=== PATIENT | female | born 1960 | race Caucasian/White ===

== ENCOUNTER 2024-11-09 00:29 | Inpatient (IN) ==
--- NOTE | 2024-11-09 00:33 | Emergency Department Note ---
Impression & Plan Acute respiratory failure with hypoxia and hypercarbia, Closed right hip fracture, Acute hyponatremia ED Provider Note NAME: CATHY CRONIN AGE: 63 SEX: F : 1960 ARRIVES VIA: Ambulance INFORMANT: Patient, nursing/EMS ED PROVIDER(S): Sigifredo Sidhu MD CHIEF COMPLAINT: Fall, hip pain MEDICAL DECISION MAKING: Patient presents for the above. I was called to the room emergently as the patient had low oxygen saturations in the high 60s and declining to is much of 60%. Patient reportedly was as low as 45% prior to my arrival into the room. I did sternal rub the patient she responded quickly and was conversational and sats improved and her oxygen was down titrated. Patient's pupils were not pinpoint did not think that she required Narcan the patient does have a known history of smoking likely history of COPD and then in addition to administration of narcotics likely contributed to the symptoms. The patient does have a chronic history of smoking does have some wheezing throughout. Patient does have concern for right hip fracture. IV was established and blood work was obtained. Patient was significant erythema to the lower extremities likely secondary to chronic swelling. Patient was ordered Pro-Joseph blood work VBG steroids DuoNeb treatment chest x-ray right hip and pelvis x-ray. Patient denies any head strike or LOC. Patient's blood work showed a normal white count hemoglobin and platelet count. The patient's kidney function was unremarkable. VBG with hypercarbia at 73 with a VBG pH is 7.3 so the patient was placed on BiPAP. Patient with significant hyponatremia at 117. No priors for comparison. Urine and serum electrolytes osmolality ordered along with urine electrolytes. Patient's chest x-ray shows possible right upper lobe patchy opacity. Patient does have obvious hip fracture on the right hip. Patient was reassessed several times still conversational and easily arousable. Given the patient's difficulty with breathing as well as hypoxia try and avoid any narcotics. The patient did receive IV Tylenol. I did speak with Dr. Granger and the patient was admitted to the medicine service. I did message with the on-call orthopedist Dr. Stark to make him aware of the patient. Critical Care: I have personally spent 65 minutes of critical care time in direct management of this patient. This includes bedside care, interpretation of diagnostic studies, and testing, discussion with consultants, patient, and family members, and other require inpatient management activities. This 65 minutes is in excess of all separately billable procedures. Discussion w/ other healthcare providers: Dr. Granger inpatient medicine service Dr. Stark orthopedics Prior /Outside records reviewed: None Differential diagnosis: Fracture, sprain, strain, subluxation, dislocation, contusion, ligamentous injury, neurovascular, dehydration, electrolyte abnormality as well as other etiologies were considered. Pneumonia, pneumothorax Diagnostics, as interpreted by me: ECG: Normal sinus rhythm, rate of 89, normal intervals, normal axis T wave version inferiorly no obvious STEMI. Cardiac monitoring: An order was placed for continuous cardiac monitoring. The monitor shows a rate of 89 with sinus rhythm. Patient was placed on pulse oximetry Medical decision rules: None Imaging studies: I informally interpreted the patient's right hip x-ray shows hip fracture with formal report to follow. HPI: Patient presents due to concern for ground-level fall. The patient states that she was walking up a hill in order to burn trash when she fell onto her right hip. Patient reports that she does chronically take hydrocodone and is a smoker. EMS did give the patient fentanyl and route. Patient states that she did not hit her head no LOC. The patient states that she does take a baby aspirin but no other antiplatelets or blood thinners. Patient denies any head neck chest back or abdominal pain. Patient states that she is on fluid pills. Patient does report right hip pain and states that this was a ground-level fall onto concrete. Patient was unable to ambulate thereafter. Patient does endorse smoking history and has had slight productive cough. PAST MEDICAL HISTORY: See Below PAST SURGICAL HISTORY: See Below SOCIAL HISTORY: See Below HOME MEDICATIONS: See Below ALLERGIES: See Below VITALS: See Below PHYSICAL EXAMINATION: GENERAL: Moderately ill in appearance, cyanotic, nonrebreather in place. EYE EXAM: Normal conjunctiva. PERRL, no anisocoria and EOM's grossly intact w/o pain. OROPHARYNX: Moist mucus membranes, grossly normal dentition. NECK: Trachea midline, no stridor. Supple, no nuchal rigidity, no adenopathy, non-tender. No signs of meningismus. FROM of the neck with good chin to chest and neck extension. LUNGS: Wheezing throughout. Normal chest wall mechanics. HEART: NSR, no MRG. ABDOMEN: Abdomen soft, non-tender, no masses, no rebound or guarding. BACK: No CVA TTP. SKIN: No rashes and no bruising. UPPER EXTREMITIES: Upper extremities are grossly normal. LOWER EXTREMITIES: Right hip shortened when compared to left, decreased range of motion right leg secondary to pain compartments are soft but noted to be swollen bilaterally with associated 2+ pitting edema with erythema bilaterally. NEURO EXAM: Awake and alert, follows commands, no obvious facial asymmetry, normal speech, moves all 4 extremities. Past Med/Surg History Problem List (Updated 11/09/24 @ 05:28 by Sigifredo Sidhu MD) Acute hyponatremia (Acute) Acute respiratory failure with hypoxia and hypercarbia (Acute) Closed right hip fracture (Acute) Hyponatremia Social History Smoking Status: Current every day smoker Tobacco Type: Cigarettes Second Hand Exposure: No; Do You Dip or Chew Tobacco: No; Hx Alcohol Use: Yes Alcohol type: beer Hx Substance Use: No Preferred Language: [place] Communication Ability: Effective Vice Chair Required: No Beliefs That Will Affect Care: None Current Living Situation: Family Feels Safe at Home: Yes Assistive Devices: Glasses Allergies Allergies Allergy/AdvReac Type Severity Reaction Status Date / Time Penicillins Allergy Intermediate Rash Verified 11/09/24 01:59 Home Meds Home Medications Medication Instructions Recorded Confirmed albuterol sulfate 90 mcg/actuation 2 puff inhalation Q4H PRN Wheezing 11/09/24 11/09/24 aerosol inhaler aspirin 81 mg tablet,delayed 81 mg PO DAILY 11/09/24 11/09/24 release buspirone 10 mg tablet 10 mg PO BID 11/09/24 11/09/24 clindamycin HCl 300 mg capsule 300 mg PO Q6H 11/09/24 11/09/24 cyclobenzaprine 5 mg tablet 5 mg PO HS PRN MUSCLE SPASMS 11/09/24 11/09/24 furosemide 20 mg tablet 20 mg PO DAILY 11/09/24 11/09/24 hydrocodone 10 mg-acetaminophen 1 tab PO BID 11/09/24 11/09/24 325 mg tablet lisinopril 20 1 tab PO DAILY 11/09/24 11/09/24 mg-hydrochlorothiazide 12.5 mg tablet magnesium oxide 400 mg PO DAILY 11/09/24 11/09/24 metoprolol succinate 25 mg 25 mg PO HS 11/09/24 11/09/24 tablet,extended release 24 hr sulfamethoxazole 800 1 tab PO BID 11/09/24 11/09/24 mg-trimethoprim 160 mg tablet tiotropium bromide 1.25 2 inh inhalation DAILY 11/09/24 11/09/24 mcg/actuation mist for inhalation (Spiriva Respimat) venlafaxine 100 mg tablet 100 mg PO DAILY 11/09/24 11/09/24 Results & Data (ED) Vital Signs Vital Signs - 24 hr 11/09/24 00:43 11/09/24 00:43 11/09/24 01:57 Temperature 36.6 C Temperature Source Oral Pulse Rate 91 H 88 87 Respiratory Rate 18 17 Respiratory Effort / Characteristics Non-Labored Spontaneous Non-Labored Spontaneous Respiratory Depth Normal Normal Respiratory Pattern Regular Regular Blood Pressure 144/70 H Blood Pressure Mean 94 Blood Pressure Position Semi-fowlers Pulse Oximetry 95 98 Oxygen Delivery Method Nasal Cannula Oxygen Flow Rate 4 Fraction of Inspired Oxygen 28 Sepsis Recent Fever Within 48 Hours No Sepsis New/Unexplained Change in Mental Status No Sepsis Action Taken by Nursing No Action Required Home Medications Current Medication List: was personally reviewed by me Laboratory Data Attestation: I reviewed the patient's lab results. 11/09/24 03:49 11/09/24 03:49 Lab Results 11/09/24 Range/Units 00:54 WBC 8.34 (4.8-10.8) K/ul RBC 5.18 (4.20-5.40) M/uL Hgb 16.5 H (12.0-16.0) g/dl Hct 48.6 H (37.0-47.0) % MCV 93.8 (80.0-100.0) fL MCH 31.9 (25.0-34.0) pg MCHC 34.0 (32.0-36.0) g/dL RDW Std Deviation 65.8 H (36.4-46.3) fL RDW Coeff of Lisandra 19.4 H (11.5-14.5) % Plt Count 199 (130-400) K/uL MPV 8.7 L (9.4-12.4) fL Immature Gran % (Auto) 0.4 % Neut % (Auto) 85.6 % Lymph % (Auto) 8.6 % Sherman % (Auto) 4.8 % Eos % (Auto) 0.1 % Baso % (Auto) 0.5 % Neut # (Auto) 7.14 H (1.40-6.50) K/uL Lymph # (Auto) 0.72 L (1.20-3.40) K/uL Sherman # (Auto) 0.40 (0.11-0.59) K/uL Eos # (Auto) 0.01 (0.00-0.50) K/uL Baso # (Auto) 0.04 (0.00-0.20) K/uL Immature Gran # (Auto) 0.03 (0.01-0.20) K/uL PT 12.2 H (9.0-12.0) Seconds INR 1.1 (0.9-1.1) APTT 29 (21-31) Seconds PTT Ratio 1.1 VBG pH 7.30 L (7.36-7.41) VBG pCO2 73 H (38-50) mmHg VBG pO2 33 mmHg VBG HCO3 36 mmol/L VBG O2 Saturation < 60.0 % VBG Base Excess 6.8 mEq/L Sodium 117 L* (136-145) mmol/L Potassium 4.1 (3.5-5.1) mmol/L Chloride 77 L (98-107) mmol/L Carbon Dioxide 32 (21-32) mmol/L Anion Gap 8 (3-11) BUN 9 (6-23) mg/dl Creatinine 0.59 L (0.6-1.2) mg/dl Est Cr Clr Drug Dosing 89.2 ml/min eGFR 100.58 BUN/Creatinine Ratio 15.3 (10-20) Glucose 119 H (70-99(Fasting)) mg/dl Osmolality 264 L (280-300) mOsm/kg Calcium 8.9 (8.6-10.3) mg/dl Total Bilirubin 1.0 (0.2-1.0) mg/dl AST 37 (13-39) U/L ALT 28 (7-52) U/L Alkaline Phosphatase 133 H (34-104) U/L Total Protein 8.0 (6.0-8.3) gm/dl Albumin 3.7 (3.4-5.0) gm/dl Globulin 4.3 H (2.5-4.0) gm/dl Albumin/Globulin Ratio 0.9 (0.9-2) Procalcitonin < 0.02 (0-0.5) ng/ml Administered Medications Doxycycline Hyclate 100 mg/ (Dextrose) 100 mls @ 50 mls/hr IV Q12H VANDA Stop: 11/11/24 04:59 Last Admin: 11/09/24 04:28 Dose: 50 mls/hr Documented By: ShreeT Discontinued Medications Albuterol (Albut/Ipratrop 3mg/0.5mg Neb 3 Ml Vial) 3 ml NEB NOW STA; Protocol Stop: 11/09/24 00:44 Last Admin: 11/09/24 01:07 Dose: 3 ml Documented By: DARLENE Azithromycin (Azithromycin 250 Mg Tab) 500 mg PO NOW ONE Stop: 11/09/24 00:50 Last Admin: 11/09/24 01:05 Dose: 500 mg Documented By: DARLENE Acetaminophen (Ofirmev) 1,000 mg in 100 mls @ 400 mls/hr IV NOW STA Stop: 11/09/24 01:00 Last Infusion: 11/09/24 02:01 Dose: Infused Documented By: Admin: 11/09/24 01:13 Dose: 400 mls/hr Documented By: DARLENE Ceftriaxone Sodium (Rocephin) 2,000 mg in 50 mls @ 100 mls/hr IV NOW STA Stop: 11/09/24 01:18 Last Infusion: 11/09/24 05:15 Dose: Infused Documented By: Admin: 11/09/24 02:27 Dose: 100 mls/hr Documented By: DARLENE Methylprednisolone (Methylprednisolone 125 Mg/2 Ml Vial) 125 mg IV NOW STA Stop: 11/09/24 00:44 Last Admin: 11/09/24 01:09 Dose: 125 mg Documented By: DARLENE Naloxone HCl (Naloxone Hcl 0.4 Mg/1 Ml Vial/Carp) Confirm Administered Dose 0.8 mg .ROUTE .STK-MED ONE Stop: 11/09/24 00:35 Last Admin: 11/09/24 02:01 Dose: Not Given Documented By: DARLENE Imaging Data Radiologist's Impression: Hip/Pelvis X-Ray 11/09/24 00:43 EXAM: XR hip RT 2V w pelvis CLINICAL HISTORY: Fall, likely frx. TECHNIQUE: X-ray images of the right hip joints in AP and lateral projections with pelvis was obtained in anteroposterior (AP) projection. COMPARISON: No prior studies available for comparison. FINDINGS: Pelvic Bones: Pelvic bones, including the iliac wings, ischium, pubis, and sacrum, are normal and intact. No evidence of fractures, dislocations, or significant osseous lesions. Hip Joints: A mildly displaced subcapital fracture of the right femur is identified. The distal fractured fragment is mildly displaced upwards. Possible right hip joint effusion is also identified, with secondary displacement of the fat planes around the hip joint. The right hip joint space is reduced, which may be due to degenerative changes. No definite signs of acetabular fracture or dysplasia. The left hip joint is normal with preserved joint space. No evidence of hip dislocation, subluxation. No Left hip joint space narrowing or sclerosis noted. No signs of acetabular fracture or dysplasia. Radiographically acetabular surface appears intact. Bilateral subarticular geodes are identified. Femoral heads are centered within the acetabulum. No evidence of avascular necrosis or significant deformities. Radiographically, the sacroiliac joints appear normal and unremarkable. No evidence of sacroiliitis or significant degenerative changes. Symphysis Pubis: Symphysis pubis is normal and intact. No evidence of separation or widening. Soft Tissues: Visualized soft tissues, other than around the right hip joint, are normal and unremarkable. No soft tissue calcifications or masses. Additional Findings: Generalized decreased bone density is identified. Age-appropriate degenerative changes are identified bilaterally in the visualized bones. No other significant abnormalities were noted. IMPRESSION: 1. A mildly displaced subcapital fracture of the right femur is identified. The distal fractured fragment is mildly displaced upwards. 2. Possible right hip joint effusion is also identified, with secondary displacement of the fat planes around the hip joint. 3. The right hip joint space is reduced, which may be due to degenerative changes. 4. Further evaluation with a CT scan of the pelvis and hip joints is advised DISCLAIMER:A subtle bone abnormality or fracture may not be readily apparent on x-rays, thus clinical correlation and further imaging including follow up CT, MRI, or follow up x-rays are advised as needed. Electronically signed by Lambert Neely 11-09-2024 03:16 AM Chest X-Ray 11/09/24 01:25 EXAM: XR chest 1V portable CLINICAL HISTORY: Hypoxia. Fall. TECHNIQUE: X-ray image of the chest is obtained in AP projection. COMPARISON: No prior studies are available for comparison. FINDINGS: Pulmonary Parenchyma: Right upper lung lobe medial aspect, patchy opacity. Suspected left hilar faint opacity with air bronchogram. No evidence of pleural effusion or pleural thickening. Heart and Mediastinum: Curvilinear calcification of the aortic arch. Cardiomegaly. No hilar or mediastinal lymphadenopathy. Bony Thorax: Bony thorax appears intact without fractures or deformities. Soft Tissues: Soft tissues overlying the chest wall are unremarkable. IMPRESSION: 1. Right upper lung lobe medial aspect, patchy opacity. 2. Suspected left hilar faint opacity with air bronchogram. 3. Cardiomegaly. 4. Further CT chest advised to rule out pulmonary infection or interstitial lung disease, if clinically indicated. Electronically signed by Lambert Neely 11-09-2024 03:03 AM Discharge Plan Visit Data Chief Complaint: Fall Stated Complaint: FALL, R HIP PAIN ED Provider: Sigifredo Sidhu Discharge Problem: Acute respiratory failure with hypoxia and hypercarbia, Closed right hip fracture, Acute hyponatremia Patient Disposition: Admitted As Inpatient Condition: Fair Discharge Instructions Interventions: ED Discharge Assessment Last Done: 11/09/24 03:15 Discharge Problem: Closed right hip fracture Qualifiers: Encounter type: initial encounter Qualified Code(s): S72.001A - Fracture of unspecified part of neck of right femur, initial encounter for closed fracture
[2024-11-09] MEDS: AZITHROMYCIN 250 MG TAB PO ONE (01:05)
[2024-11-09] MEDS: ALBUT/IPRATROP 3MG/0.5MG NEB 3 ML VIAL NEB STA (01:07)
[2024-11-09 01:10] LABS: Base Excess VBG 6.8 mEq/L; HCO3 VBG 36 mmol/L; Oxygen Saturation VBG < 60.0 %; PCO2 VBG 73 mmHg (38-50); PO2 VBG 33 mmHg; pH VBG 7.30 (7.36-7.41)
[2024-11-09] MEDS: ACETAMINOPHEN 1,000 MG/100 ML VIAL IV STA (01:13)
[2024-11-09 01:14] LABS: Hematocrit (blood only) 48.6 % (37.0-47.0); Hemoglobin 16.5 g/dl (12.0-16.0); Immature Granulocytes # (auto) 0.03 K/uL (0.01-0.20); Immature Granulocytes % (auto) 0.4 %; Mean Corpuscular Hemoglobin 31.9 pg (25.0-34.0); Mean Corpuscular Volume 93.8 fL (80.0-100.0); Platelet Count 199 K/uL (130-400); RDW Standard Deviation 65.8 fL (36.4-46.3); Red Blood Count 5.18 M/uL (4.20-5.40); White Blood Count 8.34 K/ul (4.8-10.8)
[2024-11-09 01:34] LABS: Alanine Aminotransferase 28.0 U/L (7-52); Albumin Globulin Ratio 0.9 (0.9-2); Alkaline Phosphatase 133.0 U/L (34-104); Anion Gap 8.0 (3-11); Bilirubin,Total 1.0 mg/dl (0.2-1.0); Blood Urea Nitrogen 9.0 mg/dl (6-23); Calcium 8.9 mg/dl (8.6-10.3); Carbon Dioxide 32.0 mmol/L (21-32); Chloride 77.0 mmol/L (98-107); Creatinine Clr Calc Pharmacy 89.2 ml/min; Globulin 4.3 gm/dl (2.5-4.0); Glucose 119.0 mg/dl (70-99(Fasting)); Potassium 4.1 mmol/L (3.5-5.1); Sodium 117.0 mmol/L (136-145); Total Protein 8.0 gm/dl (6.0-8.3)
[2024-11-09 01:43] LABS: INR 1.1 (0.9-1.1); Partial Thromboplastin Time 29 Seconds (21-31); Prothrombin Time 12.2 Seconds (9.0-12.0)
[2024-11-09] MEDS: NALOXONE HCL 0.4 MG/1 ML VIAL/CARP ONE (02:01)
[2024-11-09] MEDS: cefTRIAXone SODIUM 2,000 MG/50 ML BAG IV STA (02:27)
--- NOTE | 2024-11-09 02:48 | History & Physical Report ---
Date of Service November 09, 2024 Assessment & Plan (1) Hyponatremia: (2) Closed right hip fracture: Plan This is a 63 year old female with a PMH of COPD, depression/anxiety - coming in with a ground level fall, acute R hip fracture, significant hyponatremia, acute hypoxemic respiratory failure, acute COPD exacerbation Severe Hyponatremia - on arrival here, sodium of 117 noted - patient's home medications include Lasix and HCTZ; will hold both of these - check urine sodium and urine osm - check sodium q4 and repeat stat - may benefit from nephrology input if remains low Acute Hypoxemic Respiratory Failure Respiratory Acidosis Acute COPD Exacerbation - patient had oxygen saturation in the 60's, ED physician gave Narcan - placed on bipap - VBG's done and shows CO2 retention and acidosis; no previous blood gasses to compare - duonebs PRN ordered - Rocephin + doxycycline ordered - IV Solu-medrol 125mg x1 given in the ED, will use 40mg q12 moving forward Fall Acute R Hip Fracture - Patient with a ground level fall; unsure if it was mechanical or not - coming in with significant R hip pain - imaging suggestive of fracture - ortho aware - patient became very hypoxemic and lethargic after opioid pain medication; was given Narcan - monitor and will need to carefully give opioids when she is more awake History of Present Illness Primary Care Provider: Brenda Neely PA-C Allergies Allergy/AdvReac Type Severity Reaction Status Date / Time Penicillins Allergy Intermediate Rash Verified 11/09/24 01:59 Home Medications Medication Instructions Recorded Confirmed Type albuterol sulfate 90 mcg/actuation 2 puff inhalation Q4H PRN Wheezing 11/09/24 11/09/24 History aerosol inhaler aspirin 81 mg tablet,delayed 81 mg PO DAILY 11/09/24 11/09/24 History release buspirone 10 mg tablet 10 mg PO BID 11/09/24 11/09/24 History clindamycin HCl 300 mg capsule 300 mg PO Q6H 11/09/24 11/09/24 History cyclobenzaprine 5 mg tablet 5 mg PO HS PRN MUSCLE SPASMS 11/09/24 11/09/24 H istory furosemide 20 mg tablet 20 mg PO DAILY 11/09/24 11/09/24 History hydrocodone 10 mg-acetaminophen 1 tab PO BID 11/09/24 11/09/24 History 325 mg tablet lisinopril 20 1 tab PO DAILY 11/09/24 11/09/24 History mg-hydrochlorothiazide 12.5 mg tablet magnesium oxide 400 mg PO DAILY 11/09/24 11/09/24 History metoprolol succinate 25 mg 25 mg PO HS 11/09/24 11/09/24 History tablet,extended release 24 hr sulfamethoxazole 800 1 tab PO BID 11/09/24 11/09/24 History mg-trimethoprim 160 mg tablet tiotropium bromide 1.25 2 inh inhalation DAILY 11/09/24 11/09/24 History mcg/actuation mist for inhalation (Spiriva Respimat) venlafaxine 100 mg tablet 100 mg PO DAILY 11/09/24 11/09/24 History Past Med/Surg History Problem List (Updated 11/09/24 @ 02:48 by Louisa Granger DO) Closed right hip fracture Hyponatremia Social History Smoking Status: Current every day smoker Tobacco Type: Cigarettes Preferred Language: Slovak Feels Safe at Home: Yes Results & Data Results & Data Vital Signs (Past 12 Hours) Vital Signs Temp Pulse Pulse Resp BP BP Pulse Ox 11/09/24 02:26 78 17 149/77 H 96 11/09/24 00:43 88 11/09/24 00:43 36.6 C 91 H 18 144/70 H 95 O2 Del Method O2 Flow Rate 11/09/24 02:26 BiPAP 11/09/24 00:43 11/09/24 00:43 Nasal Cannula 4 Code Status & VTE Plan VTE Prophylaxis Plan VTE Prophylaxis will be ordered: Yes PG Care Time/CCT Total # of Minutes Spent Total Time Spent with Patient: Total time spent is greater than 50% in coordination of care (as documented) at patient's floor/unit and/or counseling patient: Coding Level of Care Code 82422 INT INP/OBS CARE 3/75MIN Diagnoses Hyponatremia E87.1 Closed right hip fracture S72.001A
--- NOTE | 2024-11-09 03:03 | XRay Report ---
EXAM: XR chest 1V portable CLINICAL HISTORY: Hypoxia. Fall. TECHNIQUE: X-ray image of the chest is obtained in AP projection. COMPARISON: No prior studies are available for comparison. FINDINGS: Pulmonary Parenchyma: Right upper lung lobe medial aspect, patchy opacity. Suspected left hilar faint opacity with air bronchogram. No evidence of pleural effusion or pleural thickening. Heart and Mediastinum: Curvilinear calcification of the aortic arch. Cardiomegaly. No hilar or mediastinal lymphadenopathy. Bony Thorax: Bony thorax appears intact without fractures or deformities. Soft Tissues: Soft tissues overlying the chest wall are unremarkable. IMPRESSION: 1. Right upper lung lobe medial aspect, patchy opacity. 2. Suspected left hilar faint opacity with air bronchogram. 3. Cardiomegaly. 4. Further CT chest advised to rule out pulmonary infection or interstitial lung disease, if clinically indicated. Electronically signed by Lambert Neely 11-09-2024 03:03 AM
[2024-11-09 03:04] LABS: Appearance Urine Clear (Clear); Bacteria Urine Automated None Seen (None Seen); Cast Urine Automated 0-2 /lpf (0-2); Epithelial Cell Urine Auto 0-2 /hpf (0-2); Glucose Urine UA Negative (Negative); RBC Urine Automated 0-2 /hpf (0-2); WBC Urine Automated 0-5 /hpf (0-5)
[2024-11-09] MEDS ORDERED: ALBUTEROL HFA 8 GM INHALER INH PRN (03:12)
[2024-11-09] MEDS ORDERED: ONDANSETRON INJ 2 MG/ML 2 ML VIAL IV PRN (03:12)
[2024-11-09] MEDS ORDERED: ACETAMINOPHEN 325 MG TAB PO PRN (03:12)
--- NOTE | 2024-11-09 03:17 | XRay Report ---
EXAM: XR hip RT 2V w pelvis CLINICAL HISTORY: Fall, likely frx. TECHNIQUE: X-ray images of the right hip joints in AP and lateral projections with pelvis was obtained in anteroposterior (AP) projection. COMPARISON: No prior studies available for comparison. FINDINGS: Pelvic Bones: Pelvic bones, including the iliac wings, ischium, pubis, and sacrum, are normal and intact. No evidence of fractures, dislocations, or significant osseous lesions. Hip Joints: A mildly displaced subcapital fracture of the right femur is identified. The distal fractured fragment is mildly displaced upwards. Possible right hip joint effusion is also identified, with secondary displacement of the fat planes around the hip joint. The right hip joint space is reduced, which may be due to degenerative changes. No definite signs of acetabular fracture or dysplasia. The left hip joint is normal with preserved joint space. No evidence of hip dislocation, subluxation. No Left hip joint space narrowing or sclerosis noted. No signs of acetabular fracture or dysplasia. Radiographically acetabular surface appears intact. Bilateral subarticular geodes are identified. Femoral heads are centered within the acetabulum. No evidence of avascular necrosis or significant deformities. Radiographically, the sacroiliac joints appear normal and unremarkable. No evidence of sacroiliitis or significant degenerative changes. Symphysis Pubis: Symphysis pubis is normal and intact. No evidence of separation or widening. Soft Tissues: Visualized soft tissues, other than around the right hip joint, are normal and unremarkable. No soft tissue calcifications or masses. Additional Findings: Generalized decreased bone density is identified. Age-appropriate degenerative changes are identified bilaterally in the visualized bones. No other significant abnormalities were noted. IMPRESSION: 1. A mildly displaced subcapital fracture of the right femur is identified. The distal fractured fragment is mildly displaced upwards. 2. Possible right hip joint effusion is also identified, with secondary displacement of the fat planes around the hip joint. 3. The right hip joint space is reduced, which may be due to degenerative changes. 4. Further evaluation with a CT scan of the pelvis and hip joints is advised DISCLAIMER:A subtle bone abnormality or fracture may not be readily apparent on x-rays, thus clinical correlation and further imaging including follow up CT, MRI, or follow up x-rays are advised as needed. Electronically signed by Lambert Neely 11-09-2024 03:16 AM
[2024-11-09 04:08] LABS: Hematocrit (blood only) 47.5 % (37.0-47.0); Hemoglobin 15.5 g/dl (12.0-16.0); Mean Corpuscular Hemoglobin 31.0 pg (25.0-34.0); Mean Corpuscular Volume 95.0 fL (80.0-100.0); Platelet Count 184 K/uL (130-400); RDW Standard Deviation 66.3 fL (36.4-46.3); Red Blood Count 5.00 M/uL (4.20-5.40); White Blood Count 7.55 K/ul (4.8-10.8)
[2024-11-09] MEDS: DOXYCYCLINE HYCLATE 100 MG in DEXTROSE 5% MINI-B 100 ML IV SCH (04:28)
[2024-11-09 04:30] LABS: Anion Gap 6.0 (3-11); Blood Urea Nitrogen 8.0 mg/dl (6-23); Calcium 8.6 mg/dl (8.6-10.3); Carbon Dioxide 32.0 mmol/L (21-32); Chloride 78.0 mmol/L (98-107); Creatinine Clr Calc Pharmacy 109.6 ml/min; Glucose 117.0 mg/dl (70-99(Fasting)); Magnesium 1.5 mg/dl (1.7-2.4); Potassium 4.5 mmol/L (3.5-5.1); Sodium 116.0 mmol/L (136-145)
[2024-11-09 04:45] LABS: Anisocytosis Present; Immature Granulocytes # (auto) 0.04 K/uL (0.01-0.20); Immature Granulocytes % (auto) 0.5 %; Polychromasia 2+
[2024-11-09] MEDS: ALBUT/IPRATROP 3MG/0.5MG NEB 3 ML VIAL NEB PRN (07:09)
--- NOTE | 2024-11-09 07:28 | Electrocardiogram Report ---
Test Reason : Blood Pressure : */* mmHG Vent. Rate : 89 BPM Atrial Rate : 89 BPM P-R Int : 170 ms QRS Dur : 90 ms QT Int : 370 ms P-R-T Axes : -21 162 -13 degrees QTcB Int : 450 ms Normal sinus rhythm with a PAC Left posterior fascicular block T wave abnormality, consider inferior ischemia Abnormal ECG No previous ECGs available Confirmed by Jefferson Chaudhary ([id number]) on 11/09/2024 7:28:06 AM Referred By: REFERRED SELF Confirmed By: Jefferson Chaudhary
[2024-11-09 07:36] LABS: Anion Gap 8.0 (3-11); Blood Urea Nitrogen 8.0 mg/dl (6-23); Calcium 8.4 mg/dl (8.6-10.3); Carbon Dioxide 32.0 mmol/L (21-32); Chloride 78.0 mmol/L (98-107); Creatinine Clr Calc Pharmacy 114.4 ml/min; Glucose 139.0 mg/dl (70-99(Fasting)); Potassium 4.5 mmol/L (3.5-5.1); Sodium 118.0 mmol/L (136-145)
--- NOTE | 2024-11-09 09:11 | Orthopedic Consultation ---
Date of Consultation November 09, 2024 Assessment & Plan (1) Closed right hip fracture: (2) Acute hyponatremia: (3) Acute respiratory failure with hypoxia and hypercarbia: (4) Tobacco abuse: (5) Alcohol abuse: Plan This is a 63-year-old female who appears much older than stated age who presented to the emergency department for evaluation of her right hip after a fall that occurred last evening. In the emergency department, she was hypoxic which was considered secondary to somnolence and her smoking history/COPD. This responded with supplemental oxygen and arousal. Additionally, the patient was found to be profoundly hyponatremic. I do long discussion with patient regarding her current presentation. Discussed in great detail the pathoanatomy, pathophysiology, treatment options for her right hip. Her fracture represents a completely displaced femoral neck fracture and as such my recommendation for her would be an arthroplasty type procedure. I discussed with her that 2 options for arthroplasty procedures would be a hemiarthroplasty versus total hip arthroplasty. Given the patient's age alone, total hip arthroplasty might be the preferable procedure, however given the patient's current medical status being that she is profoundly hyponatremic and has a history significant for alcohol and tobacco abuse, a hemiarthroplasty may be a safer procedure for her. With regards to total hip arthroplasty, while this potentially decreases the need for future surgery, does carry with a higher risk of dislocation and a hemiarthroplasty. There is also a more involved procedure. Hemiarthroplasty does have risks of dislocation as well, but these are lower than a total hip arthroplasty. Both surgeries would carry with them the risk of loss of life/limb, DVT, incomplete relief of pain, need for additional surgery, infection, hardware complication, hardware failure, dislocation. The alternative surgical management would be for nonoperative care. I expressed the patient that this would likely involve a significant period of time of nonweightbearing due to the pain associated with attempted weightbearing. Nonoperative care additionally carries with high risks of complications of immobilization such as ulcers, DVT, pneumonia. After thorough discussion of the risk, benefits and alternative surgical management, the patient is interested in pursuing operative care. Given the risks associate with total hip arthroplasty, the patient is more interested in hemiarthroplasty which I do believe is a more appropriate procedure for her. Given the patient's profound hyponatremia, I did discuss this case with both the hospitalist, Dr. Rose as well as the anesthesiologist, Dr. Reyes. Per anesthesia, goal sodium would be at least 130 in order to decrease perioperative risks. Patient will have her sodium repleted by the hospitalist team and we will continue to monitor her to ensure that she is improving. Given the patient's low sodium level today, and the need for slow repletion to prevent risks of too fast of a repletion, I do not believe that surgery will be feasible today. Please keep the patient n.p.o. after midnight every night until her sodium level is checked on the morning to determine if surgery will be able to occur that day. For now, the patient can receive DVT prophylaxis. She can also eat today from an orthopedic standpoint. She should be nonweightbearing on her right lower extremity. History of Present Illness Reason for Consultation: Right hip fracture Attending Physician: Jair Rose DO History of Present Illness Patient presented to ED last evening for fall wherein she sustained a right hip fracture. upon presentation to the ER she was noted to have low oxygen saturations this corrected in the ED once th patient was awake. Patient's past medical history is significant for alcohol abuse (at least 8 beers daily) and tobacco abuse (1-1/2 to 2 packs daily). In the ER, patient's blood work showed a normal white count hemoglobin and platelet count. The patient's kidney function was unremarkable. VBG with hypercarbia at 73 with a VBG pH is 7.3 so the patient was placed on BiPAP. Patient with significant hyponatremia at 117. No priors for comparison. I did speak with Dr. Reyes of anesthesia and Dr Rose of medicine about the patients hyponatremia. Patient notes that she fell last evening. She denies pain to any other region besides her right hip. Patient denies significant past medical history with the exception of her alcohol use, tobacco abuse, and COPD, however notes that she does not go to see doctors. She states that her bilateral lower extremities have been red and swollen for at least a year. Allergies Allergy/AdvReac Type Severity Reaction Status Date / Time Penicillins Allergy Intermediate Rash Verified 11/09/24 01:59 Home Medications Medication Instructions Recorded Confirmed Type albuterol sulfate 90 mcg/actuation 2 puff inhalation Q4H PRN Wheezing 11/09/24 11/09/24 History aerosol inhaler aspirin 81 mg tablet,delayed 81 mg PO DAILY 11/09/24 11/09/24 History release buspirone 10 mg tablet 10 mg PO BID 11/09/24 11/09/24 History clindamycin HCl 300 mg capsule 300 mg PO Q6H 11/09/24 11/09/24 History cyclobenzaprine 5 mg tablet 5 mg PO HS PRN MUSCLE SPASMS 11/09/24 11/09/24 History furosemide 20 mg tablet 20 mg PO DAILY 11/09/24 11/09/24 History hydrocodone 10 mg-acetaminophen 1 tab PO BID 11/09/24 11/09/24 History 325 mg tablet lisinopril 20 1 tab PO DAILY 11/09/24 11/09/24 History mg-hydrochlorothiazide 12.5 mg tablet magnesium oxide 400 mg PO DAILY 11/09/24 11/09/24 History metoprolol succinate 25 mg 25 mg PO HS 11/09/24 11/09/24 History tablet,extended release 24 hr sulfamethoxazole 800 1 tab PO BID 11/09/24 11/09/24 History mg-trimethoprim 160 mg tablet tiotropium bromide 1.25 2 inh inhalation DAILY 11/09/24 11/09/24 History mcg/actuation mist for inhalation (Spiriva Respimat) venlafaxine 100 mg tablet 100 mg PO DAILY 11/09/24 11/09/24 History Patient History Social History Smoking Status: Current every day smoker Tobacco Type: Cigarettes Second Hand Exposure: No; Do You Dip or Chew Tobacco: No; Hx Alcohol Use: Yes Alcohol type: beer Hx Substance Use: No Preferred Language: Fijian Communication Ability: Effective Rn Pediatric Required: No Beliefs That Will Affect Care: None Current Living Situation: Family Feels Safe at Home: Yes Assistive Devices: Glasses Review of Systems Review of Systems: All systems reviewed & are unremarkable except as noted in HPI & below Physical Exam Physical Exam: Right lower extremity shortened. Positive logroll and heel strike. No open wounds about the right hip. Patient demonstrates active EHL/FHL function. Her foot pulses are nonpalpable but her foot is warm and well-perfused. Results & Data Vital Signs (Past 12 Hours) Vital Signs Temp Pulse Pulse Resp BP BP Pulse Ox 11/09/24 08:00 95 H 11/09/24 08:00 11/09/24 07:45 36.5 C 90 20 146/70 H 90 11/09/24 07:09 95 H 18 90 11/09/24 04:44 98 H 11/09/24 03:52 11/09/24 03:52 36.4 C L 95 H 18 152/88 H 94 11/09/24 03:15 94 H 16 153/91 H 94 11/09/24 02:26 78 17 149/77 H 96 11/09/24 01:57 87 17 98 11/09/24 00:43 88 11/09/24 00:43 36.6 C 91 H 18 144/70 H 95 O2 Del Method O2 Flow Rate FiO2 11/09/24 08:00 11/09/24 08:00 Nasal Cannula 3 11/09/24 07:45 BiPAP 11/09/24 07:09 BiPAP 30 11/09/24 04:44 11/09/24 03:52 BiPAP 30 11/09/24 03:52 BiPAP 30 11/09/24 03:15 BiPAP 11/09/24 02:26 BiPAP 11/09/24 01:57 28 11/09/24 00:43 11/09/24 00:43 Nasal Cannula 4 Diagnostic Findings X-rays right hip personally interpreted and reviewed demonstrate a [place] 4 right transcervical femoral neck fracture. (1) Closed right hip fracture Encounter type: initial encounter Qualified Code(s): S72.001A - Fracture of unspecified part of neck of right femur, initial encounter for closed fracture
[2024-11-09] MEDS: UMECLIDINIUM BROMIDE 62.5MCG/BLISTER 7 PUFFS/INHALER INH SCH (09:12)
[2024-11-09] MEDS: busPIRone 5 MG TAB PO SCH (09:13)
[2024-11-09] MEDS: VENLAFAXINE HCL 50 MG TAB PO SCH (09:13)
[2024-11-09] MEDS: ASPIRIN 81 MG ECTAB PO SCH (09:13)
--- NOTE | 2024-11-09 09:57 | XRay Report ---
RIGHT FEMUR 2 VIEWS CLINICAL HISTORY: Right femoral fracture. FINDINGS: AP and crosstable lateral views of the right femur are correlated with right hip x-rays per formed earlier the same day 11/09/2024. The skeletal structures are osteopenic. Again seen is an impact ed subcapital fracture of the right proximal femur. There is superior distraction of the femoral neck by approximately 3 cm. Overlying soft tissue edema is observed. The distal femur is intact. The hip and knee joints are grossly maintained noting degenerative change. There is a suprapatellar knee join t effusion. The imaged right hemipelvis appears intact. Degenerative sclerosis is noted in the right sacroiliac joint. An enthesophyte arises from the right anterior superior iliac spine. IMPRESSION: 1. An impacted and displaced subcapital fracture of the right proximal femur is similar to previous. 2. The distal femur appears intact. Electronically signed by: Yonatan Espinosa M.D. 11/09/2024 9:55 AM
[2024-11-09] MEDS: THIAMINE HCL 500 MG in SODIUM CHLORIDE 0.9% 50 ML IV SCH (10:54)
--- NOTE | 2024-11-09 12:01 | Hospitalist Progress Note ---
Date of Service November 09, 2024 Assessment & Plan (1) Hyponatremia: (2) Closed right hip fracture: Plan Yolande An a 63 year old female with a PMH of COPD, smoking (1ppd since age 8), anxiety, hypertension - coming in with a ground level fall, acute R hip fracture, significant hyponatremia (sodium of 118), acute hypoxemic respiratory failure, acute COPD exacerbation Severe Hyponatremia - on arrival here, sodium of 117 noted -holding hctz and lasix fluid restricted diet; nephrology consulted - check urine sodium and urine osm - check sodium q4 and repeat stat acute right hip fracture, fall episode orthopedic Dr. Stark evaluate the patient on 11/09/2024 defer surgery until sodium improved to 130 of high pain control with oxycodone monitor for sedation Acute Hypoxemic Respiratory Failure Respiratory Acidosis she's on 3 liter, duoneb. s/p solumedrol 125 in the ED c/w solumedrol 40mg q12 hours - patient had oxygen saturation in the 60's, ED physician gave Narcan - placed on bipap - VBG's done and shows CO2 retention and acidosis; no previous blood gasses to compare - duonebs PRN ordered - Rocephin + doxycycline ordered smoking 1 ppd since age 8 Admission and Anticipated Discharge Date Admission Date: November 09, 2024 Subjective her sodium was 119 and her hctz and lasix being held started on fluid restricted diet nephrology consulted, she is AAox3. in addition. for her hip fracture, anesthesia deferred surgery until sodium improved to 130 no plan for surgery on Sunday; she was started on diet Review of Systems Review of Systems: Constitutional: No Weight Change, No Fever, No Chills, No Night Sweats, No Fatigue, No Malaise Cardiovascular: No Chest Pain, No SOB, No PND, No Dyspnea on Exertion, No Orthopnea, No Claudication, No Edema, No Palpitations Respiratory: no cough; no congestion; + for smoking (1ppd since age 8) Gastrointestinal: No Nausea, No Vomiting, No Diarrhea, No Constipation, No Pain, No Heartburn, No Anorexia, No Dysphagia Genitourinary: no dysuria Musculoskeletal: + for right hip pain Neuro: No Weakness, No Numbness, No Paresthesias, No Loss of Consciousness, No Syncope, No Dizziness, No Headache, No Coordination Changes, No Recent Falls Heme/Lymph: No Bruising, No Bleeding, No Transfusions History, No Lymphadenopathy Endocrine: No Polyuria, No Polydipsia, No Temperature Intolerance Physical Exam Physical Exam: VITALS: Reviewed. WEIGHT/BMI reviewed. GEN: Healthy appearing, well-developed, NAD. -Head: NC/AT; NECK: Supple, with no masses. CV: RRR, no m/r/g. LUNGS: CTAB, no w/r/c. on oxygen; decrease breath sound + for wheezing ABD: Soft, NT/ND, NBS, no masses or organomegaly. MSK: right hip painful to palpation; normal sensation to soft touch; normal dorsalis pedis pulse EXT: No clubbing, cyanosis, or edema. NEURO: AAOx3 Results & Data Results & Data Vital Signs (Past 12 Hours) Vital Signs Temp Pulse Pulse Resp BP BP Pulse Ox 11/09/24 08:00 95 H 11/09/24 08:00 11/09/24 07:45 36.5 C 90 20 146/70 H 90 11/09/24 07:09 95 H 18 90 11/09/24 04:44 98 H 11/09/24 03:52 11/09/24 03:52 36.4 C L 95 H 18 152/88 H 94 11/09/24 03:15 94 H 16 153/91 H 94 11/09/24 02:26 78 17 149/77 H 96 11/09/24 01:57 87 17 98 11/09/24 00:43 88 11/09/24 00:43 36.6 C 91 H 18 144/70 H 95 O2 Del Method O2 Flow Rate FiO2 11/09/24 08:00 11/09/24 08:00 Nasal Cannula 3 11/09/24 07:45 BiPAP 11/09/24 07:09 BiPAP 30 11/09/24 04:44 11/09/24 03:52 BiPAP 30 11/09/24 03:52 BiPAP 30 11/09/24 03:15 BiPAP 11/09/24 02:26 BiPAP 11/09/24 01:57 28 11/09/24 00:43 11/09/24 00:43 Nasal Cannula 4 Laboratory Results Abnormal Lab Results 11/09/24 11/09/24 11/09/24 00:54 02:20 03:49 WBC 8.34 7.55 RBC 5.18 5.00 Hgb 16.5 H 15.5 Hct 48.6 H 47.5 H MCV 93.8 95.0 MCH 31.9 31.0 MCHC 34.0 32.6 RDW Std Deviation 65.8 H 66.3 H RDW Coeff of Lisandra 19.4 H 19.5 H Plt Count 199 184 MPV 8.7 L 8.5 L Immature Gran % (Auto) 0.4 0.5 Neut % (Auto) 85.6 94.9 Lymph % (Auto) 8.6 2.4 [place] % (Auto) 4.8 1.9 Eos % (Auto) 0.1 0.0 Baso % (Auto) 0.5 0.3 Neut # (Auto) 7.14 H 7.17 H Lymph # (Auto) 0.72 L 0.18 L [place] # (Auto) 0.40 0.14 Eos # (Auto) 0.01 0.00 Baso # (Auto) 0.04 0.02 Immature Gran # (Auto) 0.03 0.04 Polychromasia 2+ Anisocytosis Present PT 12.2 H INR 1.1 APTT 29 PTT Ratio 1.1 VBG pH 7.30 L VBG pCO2 73 H VBG pO2 33 VBG HCO3 36 VBG O2 Saturation < 60.0 VBG Base Excess 6.8 Sodium 117 L* 116 L* Potassium 4.1 4.5 Chloride 77 L 78 L Carbon Dioxide 32 32 Anion Gap 8 6 BUN 9 8 Creatinine 0.59 L 0.48 L Est Cr Clr Drug Dosing 89.2 109.6 eGFR 100.58 105.70 BUN/Creatinine Ratio 15.3 16.7 Glucose 119 H 117 H Osmolality 264 L Calcium 8.9 8.6 Phosphorus 4.3 Magnesium 1.5 L Total Bilirubin 1.0 AST 37 ALT 28 Alkaline Phosphatase 133 H Total Protein 8.0 Albumin 3.7 Globulin 4.3 H Albumin/Globulin Ratio 0.9 Procalcitonin < 0.02 Urine Color Yellow Urine Appearance Clear Urine pH 6.5 Ur Specific [place] 1.008 Urine Protein 1+ H Urine Glucose (UA) Negative Urine Ketones Negative Urine Blood Negative Urine Nitrite Negative Urine Bilirubin Negative Urine Urobilinogen Negative Ur Leukocyte Esterase Negative Urine WBC (Auto) 0-5 Urine RBC (Auto) 0-2 U Hyaline Cast (Auto) 0-2 U Epithel Cells (Auto) 0-2 Urine Bacteria (Auto) None Seen Urine Osmolality 222 L Urine Sodium 35 Urine Potassium 21.8 Urine Chloride 38 Urine Comment 11/09/24 07:02 WBC RBC Hgb Hct MCV MCH MCHC RDW Std Deviation RDW Coeff of Lisandra Plt Count MPV Immature Gran % (Auto) Neut % (Auto) Lymph % (Auto) [place] % (Auto) Eos % (Auto) Baso % (Auto) Neut # (Auto) Lymph # (Auto) [place] # (Auto) Eos # (Auto) Baso # (Auto) Immature Gran # (Auto) Polychromasia Anisocytosis PT INR APTT PTT Ratio VBG pH VBG pCO2 VBG pO2 VBG HCO3 VBG O2 Saturation VBG Base Excess Sodium 118 L* Potassium 4.5 Chloride 78 L Carbon Dioxide 32 Anion Gap 8 BUN 8 Creatinine 0.46 L Est Cr Clr Drug Dosing 114.4 eGFR 106.79 BUN/Creatinine Ratio 17.4 Glucose 139 H Osmolality Calcium 8.4 L Phosphorus Magnesium Total Bilirubin AST ALT Alkaline Phosphatase Total Protein Albumin Globulin Albumin/Globulin Ratio Procalcitonin Urine Color Urine Appearance Urine pH Ur Specific [place] Urine Protein Urine Glucose (UA) Urine Ketones Urine Blood Urine Nitrite Urine Bilirubin Urine Urobilinogen Ur Leukocyte Esterase Urine WBC (Auto) Urine RBC (Auto) U Hyaline Cast (Auto) U Epithel Cells (Auto) Urine Bacteria (Auto) Urine Osmolality Urine Sodium Urine Potassium Urine Chloride Urine Comment PG Care Time/CCT Total # of Minutes Spent Total Time Spent with Patient: Total time spent is greater than 50% in coordination of care (as documented) at patient's floor/unit and/or counseling patient: Coding Level of Care Code 78739 SUB INP/OBS CARE 2/35MIN Diagnoses Hyponatremia E87.1 Closed right hip fracture S72.001A Encounter type: initial encounter Time Spent (min) 35 (2) Closed right hip fracture Encounter type: initial encounter Qualified Code(s): S72.001A - Fracture of unspecified part of neck of right femur, initial encounter for closed fracture
[2024-11-09 12:06] LABS: Anion Gap 5 (3-11); Blood Urea Nitrogen 8 mg/dl (6-23); Calcium 8.5 mg/dl (8.6-10.3); Carbon Dioxide 33 mmol/L (21-32); Chloride 79 mmol/L (98-107); Creatinine Clr Calc Pharmacy 109.6 ml/min; Glucose 131 mg/dl (70-99(Fasting)); Sodium 117 mmol/L (136-145)
--- NOTE | 2024-11-09 12:39 | Nephrology Consultation ---
Date of Consultation November 09, 2024 Assessment & Plan (1) Acute hyponatremia: (2) Alcohol abuse: (3) Closed right hip fracture: Plan 63-year-old female with past medical history significant for hypertension, smoking and alcohol abuse, admitted to the hospital after a fall at home and right hip fracture and found to have acute hyponatremia. Serum sodium was 117 on admission and since admission and repeated labs sodium staying around 116- 117. Urine osmolality was 220 and urine sodium was appropriately low at 35. Clinically seems euvolemic. Blood pressure slightly elevated with ongoing pain related to right hip fracture. Orthopedic surgery on hold because of hyponatr emia. Acute hyponatremia possibly secondary to combination of factors including intractable pain, COPD, excessive alcohol. -- Serum sodium has been staying low and repeatedly dropping, will give 1 dose of tolvaptan 15 mg now -- Continue to monitor serum sodium every 4 hours -- Fluid restriction to 1500 mL/day -- If sodium remains low, will start on salt tab -- Encouraged increased protein intake -- Check TSH, random cortisol -- Consider doing CT chest when clinically stable to follow-up for right upper lobe patchy opacity with long history of smoking. Thank you for allowing me to participate in your patient's care. It was a pleasure to see Yolande History of Present Illness Reason for Consultation: Acute hyponatremia Attending Physician: Jair Rose DO History of Present Illness Ms. Yolande An is a 63 y o F with past medical history significant for hypertension, COPD, active smoking and alcohol abuse admitted to the hospital with right hip fracture after a fall at home. Nephrology consult was requested for management of acute hyponatremia noted on admission. EMR records were reviewed in detail during patient's visit. Yolande presented to ER last night after she had a mechanical fall at home. Imaging in ER showed right hip fracture. Evaluated by orthopedics and plan to have hip arthroplasty however currently postponed because of hyponatremia. Admission lab was notable for hyponatremia, serum sodium was 117 but no prior record available. Other electrolytes and kidney function was normal. Urine osmolality was 222. Urine sodium appropriately low at 35. Chest x-ray on admission showed no pulmonary congestion but noted to have right upper lobe patchy opacity and recommended CT chest for further evaluation. Has advanced COPD, she smokes 1 and half packs per day. Reports drinking 7-8 beers per day. Never had mammogram but she reports previously having colonoscopy, no personal history of malignancy. She could not recall her that she was on hydrochlorothiazide for hypertension or not. She reports significant ongoing pain. History of hypertension, blood pressure has been slightly elevated with ongoing pain. No known history of coronary artery disease. She reports recently having progressive lower extremity edema and her primary care physician has been doing workup for further evaluation. Sodium has been staying around 117-118 on repeated lab since admission. She has been on mild fluid restriction. Allergies Allergy/AdvReac Type Severity Reaction Status Date / Time Penicillins Allergy Intermediate Rash Verified 11/09/24 01:59 Home Medications Medication Instructions Recorded Confirmed Type albuterol sulfate 90 mcg/actuation 2 puff inhalation Q4H PRN Wheezing 11/09/24 11/09/24 History aerosol inhaler aspirin 81 mg tablet,delayed 81 mg PO DAILY 11/09/24 11/09/24 History release buspirone 10 mg tablet 10 mg PO BID 11/09/24 11/09/24 History clindamycin HCl 300 mg capsule 300 mg PO Q6H 11/09/24 11/09/24 History cyclobenzaprine 5 mg tablet 5 mg PO HS PRN MUSCLE SPASMS 11/09/24 11/09/24 History furosemide 20 mg tablet 20 mg PO DAILY 11/09/24 11/09/24 History hydrocodone 10 mg-acetaminophen 1 tab PO BID 11/09/24 11/09/24 History 325 mg tablet lisinopril 20 1 tab PO DAILY 11/09/24 11/09/24 History mg-hydrochlorothiazide 12.5 mg tablet magnesium oxide 400 mg PO DAILY 11/09/24 11/09/24 History metoprolol succinate 25 mg 25 mg PO HS 11/09/24 11/09/24 History tablet,extended release 24 hr sulfamethoxazole 800 1 tab PO BID 11/09/24 11/09/24 History mg-trimethoprim 160 mg tablet tiotropium bromide 1.25 2 inh inhalation DAILY 11/09/24 11/09/24 History mcg/actuation mist for inhalation (Spiriva Respimat) venlafaxine 100 mg tablet 100 mg PO DAILY 11/09/24 11/09/24 History Patient History Social History Smoking Status: Current every day smoker Tobacco Type: Cigarettes Second Hand Exposure: No; Do You Dip or Chew Tobacco: No; Hx Alcohol Use: Yes Alcohol type: beer Hx Substance Use: No Preferred Language: Nigerian Communication Ability: Effective Military Professional Required: No Beliefs That Will Affect Care: None Current Living Situation: Family Feels Safe at Home: Yes Assistive Devices: Glasses Review of Systems Review of Systems: Detail review of system was done and pertinent positives and negatives are mentioned above. Physical Exam Constitutional: WD/WN, vitals as above + ill appearing; no acute distress Eyes: + anicteric sclerae Neck: normal visual inspection Respiratory: no respiratory distress Auscultation: + diminished lung sounds; no crackles Cardiovascular: Rate/Rhythm: regular rate and regular rhythm Heart Sounds: normal S1 and normal S2 Extremities: + edema Gastrointestinal (Abdomen): Inspection/Auscultation: abdomen normal to inspection Musculoskeletal: Extremities: extremities normal to inspection Skin: no rashes, warm and dry Neurologic: no focal motor deficits and not confused Psychiatric: Orientation: alert and oriented x 3 Affect: euthymic affect Results & Data Vital Signs (Past 12 Hours) Vital Signs Temp Pulse Pulse Resp BP BP Pulse Ox 11/09/24 08:00 95 H 11/09/24 08:00 11/09/24 07:45 36.5 C 90 20 146/70 H 90 11/09/24 07:09 95 H 18 90 11/09/24 04:44 98 H 11/09/24 03:52 11/09/24 03:52 36.4 C L 95 H 18 152/88 H 94 11/09/24 03:15 94 H 16 153/91 H 94 11/09/24 02:26 78 17 149/77 H 96 11/09/24 01:57 87 17 98 11/09/24 00:43 88 11/09/24 00:43 36.6 C 91 H 18 144/70 H 95 O2 Del Method O2 Flow Rate FiO2 11/09/24 08:00 11/09/24 08:00 Nasal Cannula 3 11/09/24 07:45 BiPAP 11/09/24 07:09 BiPAP 30 11/09/24 04:44 11/09/24 03:52 BiPAP 30 11/09/24 03:52 BiPAP 30 11/09/24 03:15 BiPAP 11/09/24 02:26 BiPAP 11/09/24 01:57 28 11/09/24 00:43 11/09/24 00:43 Nasal Cannula 4 PG Care Time/CCT Total # of Minutes Spent Total Time Spent with Patient: Total time spent is greater than 50% in coordination of care (as documented) at patient's floor/unit and/or counseling patient: Coding Level of Care Code 72083 INT INP/OBS CARE 3/75MIN Diagnoses Acute hyponatremia E87.1 Alcohol abuse F10.10 Closed right hip fracture S72.001A Encounter type: initial encounter (3) Closed right hip fracture Encounter type: initial encounter Qualified Code(s): S72.001A - Fracture of unspecified part of neck of right femur, initial encounter for closed fracture
[2024-11-09] MEDS: MAGNESIUM SULFATE / D5W 1 GM/100 ML BAG IV ONE (13:09)
[2024-11-09] MEDS: TOLVAPTAN 15 MG TABLET PO ONE (13:09)
[2024-11-09 13:10] LABS: Thyroid Stimulating Hormone 3.631 uIu/ml (0.300-4.500)
[2024-11-09 15:57] LABS: Anion Gap 5.0 (3-11); Blood Urea Nitrogen 9.0 mg/dl (6-23); Calcium 8.5 mg/dl (8.6-10.3); Carbon Dioxide 33.0 mmol/L (21-32); Chloride 80.0 mmol/L (98-107); Creatinine Clr Calc Pharmacy 111.9 ml/min; Glucose 161.0 mg/dl (70-99(Fasting)); Potassium 4.7 mmol/L (3.5-5.1); Sodium 118.0 mmol/L (136-145)
[2024-11-09 16:10] LABS: Appearance Urine Clear (Clear); Glucose Urine UA Negative (Negative)
--- NOTE | 2024-11-09 16:12 | CT Scan Report ---
EXAMINATION: Chest CT without CLINICAL HISTORY: Hyponatremia, rule out lung nodule COMPARISON: Chest radiograph 11/09/2024 TECHNIQUE: Contiguous axial images were obtained through the chest without the use of intravenous contrast. Sagittal and coronal reformations are supplied. FINDINGS: The chest is hyperexpanded. Moderate diffuse centrilobular pulmonary emphysema, most pronounced in the upper lobes. Mild hypoventilatory changes at the lung bases with small bilateral pleural effusions. No dominant mass, groundglass attenuation or airspace consolidation. Advanced atherosclerotic disease of the aorta and coronary arteries present. No adenopathy in the chest. Trachea and mainstem bronchi patent. Thyroid normal in size. No pericardial effusion. Noncontrast enhanced heart normal in size. No acute abnormality in the upper abdomen. Moderate kyphosis and osseous demineralization noted with moderate degenerative change of the mid to lower thoracic spine. No compression fracture. IMPRESSION: 1. Moderate centrilobular pulmonary emphysema with small bilateral pleural effusions and no dominant pulmonary nodule. 2. Advanced atherosclerotic disease of the aorta and coronary arteries. ACT 112: Positive. There are findings on this examination that require communication between the performing entity and the patient following Patient Test Result Information Act ([place] ACT 112) guidelines. Electronically signed by Toña Aquino 11-09-2024 4:11 PM
[2024-11-09] MEDS ORDERED: SODIUM CHLORIDE 1 GM TABLET PO SCH (17:00)
[2024-11-09 19:51] LABS: Anion Gap 4.0 (3-11); Blood Urea Nitrogen 10.0 mg/dl (6-23); Calcium 8.7 mg/dl (8.6-10.3); Carbon Dioxide 35.0 mmol/L (21-32); Chloride 83.0 mmol/L (98-107); Creatinine Clr Calc Pharmacy 77.4 ml/min; Glucose 175.0 mg/dl (70-99(Fasting)); Potassium 4.5 mmol/L (3.5-5.1); Sodium 122.0 mmol/L (136-145)
[2024-11-09] MEDS: cefTRIAXone SODIUM 1,000 MG/50 ML BAG IV SCH (20:26)
[2024-11-09] MEDS: METOPROLOL SUCC 25MG EXT REL TAB PO SCH (20:26)
[2024-11-09 23:35] LABS: Anion Gap 3.0 (3-11); Blood Urea Nitrogen 11.0 mg/dl (6-23); Calcium 8.7 mg/dl (8.6-10.3); Carbon Dioxide 36.0 mmol/L (21-32); Chloride 84.0 mmol/L (98-107); Creatinine Clr Calc Pharmacy 87.7 ml/min; Glucose 146.0 mg/dl (70-99(Fasting)); Potassium 4.8 mmol/L (3.5-5.1); Sodium 123.0 mmol/L (136-145)
[2024-11-10 07:27] LABS: Hematocrit (blood only) 49.0 % (37.0-47.0); Hemoglobin 15.6 g/dl (12.0-16.0); Mean Corpuscular Hemoglobin 31.1 pg (25.0-34.0); Mean Corpuscular Volume 97.8 fL (80.0-100.0); Platelet Count 167 K/uL (130-400); RDW Standard Deviation 69.6 fL (36.4-46.3); Red Blood Count 5.01 M/uL (4.20-5.40); White Blood Count 8.87 K/ul (4.8-10.8)
[2024-11-10 08:09] LABS: Alanine Aminotransferase 20.0 U/L (7-52); Alkaline Phosphatase 99.0 U/L (34-104); Anion Gap 3.0 (3-11); Bilirubin,Total 0.8 mg/dl (0.2-1.0); Blood Urea Nitrogen 10.0 mg/dl (6-23); Calcium 8.8 mg/dl (8.6-10.3); Carbon Dioxide 38.0 mmol/L (21-32); Chloride 85.0 mmol/L (98-107); Creatinine Clr Calc Pharmacy 102.4 ml/min; Glucose 134.0 mg/dl (70-99(Fasting)); Magnesium 1.8 mg/dl (1.7-2.4); Potassium 4.8 mmol/L (3.5-5.1); Sodium 126.0 mmol/L (136-145); Total Protein 7.1 gm/dl (6.0-8.3)
--- NOTE | 2024-11-10 10:01 | Nephrology Progress Note ---
Date of Service November 10, 2024 Assessment & Plan (1) Acute hyponatremia: (2) Alcohol abuse: (3) Closed right hip fracture: Plan 63-year-old female with past medical history significant for hypertension, smoking and alcohol abuse, admitted to the hospital after a fall at home and right hip fracture and found to have acute hyponatremia. Serum sodium was 117 on admission and since admission and repeated labs sodium staying around 116- 117. Urine osmolality was 220 and urine sodium was appropriately low at 35. Clinically seems euvolemic. Blood pressure slightly elevated with ongoing pain related to right hip fracture. Orthopedic surgery on hold because of hyponatremia. CT chest showed moderate pulmonary emphysema but no pulmonary nodule noted to have significant atherosclerotic disease of coronary arteries. Acute hyponatremia possibly secondary to combination of factors including intractable pain, COPD, excessive alcohol. Sodium improved to 126 and has been slowly improving since yesterday. -- Continue to monitor serum sodium every 6 hours, if Na drops again, will resume salt tab -- Fluid restriction to 1500 mL/day -- Encouraged increased protein intake Admission and Anticipated Discharge Date Admission Date: November 09, 2024 Korin Lanier was seen and evaluated this morning. She reports feeling slightly better although continues to have significant pain with right hip fracture. Sodium improved to 126. Review of Systems Review of Systems: Detailed review of system was done and pertinent positives and negatives mentioned above. Physical Exam Constitutional: WD/WN, vitals as above no acute distress Eyes: + anicteric sclerae Neck: normal visual inspection Respiratory: no respiratory distress Auscultation: + diminished lung sounds; no crackles Cardiovascular: RRR, no murmur, no edema Skin: no rashes, warm and dry Neurologic: no focal motor deficits and not confused Psychiatric: Orientation: alert and oriented x 3 Affect: euthymic affect Results & Data Vital Signs (Past 12 Hours) Vital Signs Temp Pulse Pulse Resp BP Pulse Ox O2 Del Method 11/10/24 09:25 Oxymask 11/10/24 09:24 82 L Nasal Cannula 11/10/24 09:24 92 Oxymask 11/10/24 09:20 82 145/78 H 85 L Nasal Cannula 11/10/24 08:26 82 L Nasal Cannula 11/10/24 07:48 96 Nasal Cannula 11/10/24 07:40 37.0 C 77 17 170/100 H 94 Nasal Cannula 11/10/24 07:15 Nasal Cannula 11/10/24 07:10 70 11/10/24 02:02 36.6 C 74 18 164/97 H 91 Nasal Cannula 11/09/24 23:38 36.9 C 76 20 152/96 H 94 Nasal Cannula O2 Flow Rate 11/10/24 09:25 4 11/10/24 09:24 4 11/10/24 09:24 4 11/10/24 09:20 4 11/10/24 08:26 3 11/10/24 07:48 4 11/10/24 07:40 4 11/10/24 07:15 4 11/10/24 07:10 11/10/24 02:02 4 11/09/24 23:38 4 PG Care Time/CCT Total # of Minutes Spent Total Time Spent with Patient: Total time spent is greater than 50% in coordination of care (as documented) at patient's floor/unit and/or counseling patient: Coding Level of Care Code 79778 SUB INP/OBS CARE 235MIN Diagnoses Acute hyponatremia E87.1 Alcohol abuse F10.10 Closed right hip fracture S72.001A Encounter type: initial encounter (3) Closed right hip fracture Encounter type: initial encounter Qualified Code(s): S72.001A - Fracture of unspecified part of neck of right femur, initial encounter for closed fracture
--- NOTE | 2024-11-10 10:34 | XRay Report ---
XR chest 1V portable HISTORY: 63 years-old Female cough, hypoxia COMPARISON: Chest CT 11/09/2024 TECHNIQUE: AP view of the chest FINDINGS: Cardiac silhouette is enlarged. Atherosclerosis of the aorta. Emphysema with chronic interstitial coa rsening. Pulmonary vascular congestion with trace pleural effusions and mild subsegmental bibasilar a telectasis. No pneumothorax or lobar airspace consolidation. No chronic right-sided rib fractures. IMPRESSION: 1. Cardiomegaly with pulmonary vascular congestion and trace pleural effusions. 2. Emphysema with mild bibasilar atelectasis. ACT 112: Negative or not required by law. The above report was generated using voice recognition software. It may contain grammatical, syntax o r spelling errors. Electronically signed by: Kodi Horton M.D. 11/10/2024 10:33 AM
[2024-11-10] MEDS: ALBUT/IPRATROP 3MG/0.5MG NEB 3 ML VIAL NEB SCH (10:52)
--- NOTE | 2024-11-10 10:59 | Hospitalist Progress Note ---
Date of Service November 10, 2024 Assessment & Plan (1) Closed right hip fracture: Plan: From mechanical fall. Appreciate orthopedic surgery consultation and recommendations. Right hip hemiarthroplasty planned once sodium improved to acceptable levels (2) SIADH (syndrome of inappropriate ADH production): Plan: Sodium 117 with hypoosmolarity present on admission. Sodium improved to 126. Appreciate nephrology consultation and recommendations. She has received 1 dose of tolvaptan and so far. Serial labs (3) Acute exacerbation of chronic bronchitis: Plan: Antibiotics switched to Levaquin, day 1. Obtain sputum for culture and sensitivity. Scheduled nebulizer treatments (4) Acute on chronic respiratory failure with hypoxia: Plan: Supplemental oxygen to maintain saturation greater than 90%. She states she has home oxygen but she does not use it. (5) Hypomagnesemia: Plan: Parenteral replacement. Serial labs (6) Essential hypertension: Plan: Systolic blood pressure elevation this admission warrants as needed IV hydralazine. Will follow Plan OT and PT evaluations will be obtained postoperatively which will determine disposition. Admission and Anticipated Discharge Date Admission Date: November 09, 2024 Subjective Alert and oriented. No distress. Sodium has improved to 126 but needs to be a little bit higher before she can have her right hip fracture fixed. She continues with fluid restriction. Appreciate nephrology consultation and recommendations. Her oxygen requirements have increased and she has evidence of bronchitis on examination. This is probably acute on chronic and sputum culture has been obtained and Levaquin started, day 1. Rocephin and doxycycline have been discontinued. She has no overt wheezing at this time and Solu-Medrol has also been discontinued. Scheduled nebulizers ordered. Chest x-ray reveals pulmonary vascular congestion and she will receive 1 dose of intravenous Lasix today, November 10. Review of Systems 2 Review of Systems: Constitutionalno fever or chills ENTno blurred vision, no double vision, no epistaxis, no sore throat Respiratoryoccasionally productive cough. No hemoptysis. She states she has oxygen at home but does not use it Cardiacno palpitations, no chest pain, no syncope Lulu nausea, vomiting, diarrhea, melena, hematochezia GUno urinary retention, no urinary incontinence, no dysuria, no hematuria Musculoskeletalright hip discomfort with movement from underlying fracture. No muscle tenderness Skinno bruising, no rashes, no pruritus Neurono isolated weakness, no paresthesia, no weakness Psychno depression, no anxiety Physical Exam 2 Physical Exam: General-alert and oriented x3, no fever, no chills HEENT-head atraumatic and normocephalic, pupils equal and reactive to light, extraocular muscles intact Neck-no lymphadenopathy or thyromegaly, trachea midline Chest-midline rhonchi noted. No wheezing. No dullness to percussion. Cardiac-regular rate and rhythm, normal S1 and S2 Abdomen-normal bowel sounds, no hepatosplenomegaly Extremities-right lower extremity is slightly shortened due to right hip fracture. No peripheral edema. No cyanosis. Neuro-cranial nerves II through XII intact, motor and sensory function within normal limits, strength symmetrical, no focal deficits Psych-normal affect, normal mood Results & Data Results & Data Vital Signs (Past 12 Hours) Vital Signs Temp Pulse Pulse Resp BP Pulse Ox O2 Del Method 11/10/24 09:25 Oxymask 11/10/24 09:24 82 L Nasal Cannula 11/10/24 09:24 92 Oxymask 11/10/24 09:20 82 145/78 H 85 L Nasal Cannula 11/10/24 08:26 82 L Nasal Cannula 11/10/24 07:48 96 Nasal Cannula 11/10/24 07:40 37.0 C 77 17 170/100 H 94 Nasal Cannula 11/10/24 07:15 Nasal Cannula 11/10/24 07:10 70 11/10/24 02:02 36.6 C 74 18 164/97 H 91 Nasal Cannula 11/09/24 23:38 36.9 C 76 20 152/96 H 94 Nasal Cannula O2 Flow Rate 11/10/24 09:25 4 11/10/24 09:24 4 11/10/24 09:24 4 11/10/24 09:20 4 11/10/24 08:26 3 11/10/24 07:48 4 11/10/24 07:40 4 11/10/24 07:15 4 11/10/24 07:10 11/10/24 02:02 4 11/09/24 23:38 4 Laboratory Results 11/10/24 07:05 11/10/24 07:05 PG Care Time/CCT Total # of Minutes Spent Total Time Spent with Patient: Total time spent is greater than 50% in coordination of care (as documented) at patient's floor/unit and/or counseling patient: Coding Level of Care Code 76182 SUB INP/OBS CARE MIN Diagnoses Closed right hip fracture S72.001A Encounter type: initial encounter SIADH (syndrome of inappropriate ADH production) E22.2 Acute exacerbation of chronic bronchitis J20.9; J42 Acute on chronic respiratory failure with hypoxia J96.21 Hypomagnesemia E83.42 Essential hypertension I10 (1) Closed right hip fracture Encounter type: initial encounter Qualified Code(s): S72.001A - Fracture of unspecified part of neck of right femur, initial encounter for closed fracture
[2024-11-10] MEDS: FUROSEMIDE 40 MG/4 ML VIAL IV ONE (11:36)
--- NOTE | 2024-11-10 11:51 | Orthopedic Progress Note ---
Date of Service November 10, 2024 Assessment & Plan (1) Closed right hip fracture: (2) Acute hyponatremia: (3) Acute respiratory failure with hypoxia and hypercarbia: (4) Tobacco abuse: (5) Alcohol abuse: Plan Patient had a repeat sodium done today demonstrating a sodium level of 126. Unfortunately, this is still below goal and as such she would not be able to have her right hip fracture surgery today. She is able to eat. Please continue repletion. Will plan for right hip hemiarthroplasty tomorrow 11/11/2024. N.p.o. after midnight. This surgical plan is obviously pending the patient's sodium correcting to at least 130 per anesthesia. Admission and Anticipated Discharge Date Admission Date: November 09, 2024 Subjective Patient seen and evaluated this morning. No acute changes overnight. Her sodium has improved,but is still below goal. Patient has been able to find some areas of comfort and has been able to sleep Review of Systems Review of Systems: All systems reviewed & are unremarkable except as noted in HPI & below Physical Exam Physical Exam: Right lower extremity shortened. Positive logroll and heel strike. No open wounds about the right hip. Patient demonstrates active EHL/FHL function. Her foot pulses are nonpalpable but her foot is warm and well-perfused. Results & Data Vital Signs (Past 12 Hours) Vital Signs Temp Pulse Pulse Resp BP Pulse Ox O2 Del Method 11/10/24 10:55 87 20 92 Oxymask 11/10/24 10:15 36.9 C 88 133/71 92 Oxymask 11/10/24 09:25 Oxymask 11/10/24 09:24 82 L Nasal Cannula 11/10/24 09:24 92 Oxymask 11/10/24 09:20 82 145/78 H 85 L Nasal Cannula 11/10/24 08:26 82 L Nasal Cannula 11/10/24 07:48 96 Nasal Cannula 11/10/24 07:40 37.0 C 77 17 170/100 H 94 Nasal Cannula 11/10/24 07:15 Nasal Cannula 11/10/24 07:10 70 11/10/24 02:02 36.6 C 74 18 164/97 H 91 Nasal Cannula O2 Flow Rate 11/10/24 10:55 4 11/10/24 10:15 4 11/10/24 09:25 4 11/10/24 09:24 4 08/04/25 09:24 4 11/10/24 09:20 4 11/10/24 08:26 3 11/10/24 07:48 4 11/10/24 07:40 4 11/10/24 07:15 4 11/10/24 07:10 11/10/24 02:02 4 (1) Closed right hip fracture Encounter type: initial encounter Qualified Code(s): S72.001A - Fracture of unspecified part of neck of right femur, initial encounter for closed fracture
[2024-11-10] MEDS: SODIUM CHLORIDE 1 GM TABLET PO SCH (21:48)
[2024-11-11 06:24] LABS: Hematocrit (blood only) 45.2 % (37.0-47.0); Hemoglobin 14.5 g/dl (12.0-16.0); Mean Corpuscular Hemoglobin 31.1 pg (25.0-34.0); Mean Corpuscular Volume 97.0 fL (80.0-100.0); Platelet Count 149 K/uL (130-400); RDW Standard Deviation 70.0 fL (36.4-46.3); Red Blood Count 4.66 M/uL (4.20-5.40); White Blood Count 8.30 K/ul (4.8-10.8)
[2024-11-11] MEDS ORDERED: BUPIVACAINE 0.5 % 5 MG/1 ML PF 10ML VIAL ONE ×2 (06:29→13:54)
[2024-11-11 06:40] LABS: Anion Gap 4.0 (3-11); Blood Urea Nitrogen 14.0 mg/dl (6-23); Calcium 8.7 mg/dl (8.6-10.3); Carbon Dioxide 36.0 mmol/L (21-32); Chloride 88.0 mmol/L (98-107); Creatinine Clr Calc Pharmacy 102.6 ml/min; Glucose 100.0 mg/dl (70-99(Fasting)); Magnesium 1.7 mg/dl (1.7-2.4); Potassium 4.7 mmol/L (3.5-5.1); Sodium 128.0 mmol/L (136-145)
--- NOTE | 2024-11-11 08:31 | Orthopedic Progress Note ---
Date of Service November 11, 2024 Assessment & Plan (1) Closed right hip fracture: (2) Acute hyponatremia: (3) Acute respiratory failure with hypoxia and hypercarbia: (4) Tobacco abuse: (5) Alcohol abuse: Plan Patient had a repeat sodium done today demonstrating a sodium level of 128. Unfortunately, this is still below goal. I did discuss this with anesthesia and they recommend repeat labs at noon today and if stable or increasing, can plan for operative intervention. Please keep n.p.o. for now. Please continue repletion. Will plan for right hip hemiarthroplasty today 11/11/2024 if able. This surgical plan is obviously pending the patient's sodium correcting or rosalia ining stable. Admission and Anticipated Discharge Date Admission Date: November 09, 2024 Subjective Patient seen and evaluated this morning. No acute changes overnight. Her sodium has improved,but is still below goal. Patient has been able to find some areas of comfort and has been able to sleep. on oxygen this morning and saturating well Review of Systems Review of Systems: All systems reviewed & are unremarkable except as noted in HPI & below Physical Exam Physical Exam: Right lower extremity shortened. Positive logroll and heel strike. No open wounds about the right hip. Patient demonstrates active EHL/FHL function. Her foot pulses are nonpalpable but her foot is warm and well-perfused. Results & Data Vital Signs (Past 12 Hours) Vital Signs Temp Pulse Pulse Resp BP BP Pulse Ox 11/11/24 07:44 36.9 C 75 21 140/93 94 11/11/24 07:17 80 20 94 11/11/24 03:11 74 15 92 11/11/24 02:58 36.6 C 68 18 123/62 92 11/11/24 00:14 70 20 96 11/10/24 22:56 36.6 C 67 18 130/68 93 O2 Del Method O2 Flow Rate FiO2 11/11/24 07:44 Oxymask 4.0 11/11/24 07:17 Oxymask 4 11/11/24 03:11 30 11/11/24 02:58 BiPAP 11/11/24 00:14 30 11/10/24 22:56 Nasal Cannula 4 (1) Closed right hip fracture Encounter type: initial encounter Qualified Code(s): S72.001A - Fracture of unspecified part of neck of right femur, initial encounter for closed fracture
--- NOTE | 2024-11-11 10:39 | Nephrology Progress Note ---
Date of Service November 11, 2024 Assessment & Plan (1) Acute hyponatremia: (2) Alcohol abuse: (3) Closed right hip fracture: Plan 63-year-old female with past medical history significant for hypertension, smoking and alcohol abuse, admitted to the hospital after a fall at home and right hip fracture and found to have acute hyponatremia. Serum sodium was 117 on admission and since admission and repeated labs sodium staying around 116- 117. Urine osmolality was 220 and urine sodium was appropriately low at 35. Clinically seems euvolemic. Blood pressure slightly elevated with ongoing pain related to right hip fracture. Orthopedic surgery on hold because of hyponatremia. CT chest showed moderate pulmonary emphysema but no pulmonary nodule noted to have significant atherosclerotic disease of coronary arteries. Acute hyponatremia possibly secondary to combination of factors including intractable pain, COPD, excessive alcohol. Sodium improved to 128 and has been slowly improving. Orthopedic surgery tentatively planning for hip surgery this afternoon but waiting for sodium goal of 130. -- Continue salt tab 2 g twice a day, waiting for another sodium check at noon and if at goal plan to have the surgery this afternoon. -- Fluid restriction to 1500 mL/day -- Encouraged increased protein intake Admission and Anticipated Discharge Date Admission Date: November 09, 2024 Korin Lanier was seen and evaluated this morning. She reports feeling slightly better although continues to have significant pain with right hip fracture and g etting frustrated with delay in surgery. Sodium improved to 128. Review of Systems Review of Systems: Detailed review of system was done and pertinent positives and negatives mentioned above. Physical Exam Constitutional: WD/WN, vitals as above + ill appearing; no acute distress Eyes: + anicteric sclerae Neck: normal visual inspection Respiratory: no respiratory distress Auscultation: + diminished lung sounds; no crackles Cardiovascular: RRR, no murmur, no edema Musculoskeletal: Extremities: extremities normal to inspection Skin: no rashes, warm and dry Neurologic: no focal motor deficits and not confused Psychiatric: Orientation: alert and oriented x 3 Affect: euthymic affect Results & Data Vital Signs (Past 12 Hours) Vital Signs Temp Pulse Pulse Resp BP BP Pulse Ox 11/11/24 09:08 69 11/11/24 09:00 11/11/24 07:44 36.9 C 75 21 140/93 94 11/11/24 07:17 80 20 94 11/11/24 03:11 74 15 92 11/11/24 02:58 36.6 C 68 18 123/62 92 11/11/24 00:14 70 20 96 11/10/24 22:56 36.6 C 67 18 130/68 93 O2 Del Method O2 Flow Rate FiO2 11/11/24 09:08 11/11/24 09:00 Oxymask 4 11/11/24 07:44 Oxymask 4.0 11/11/24 07:17 Oxymask 4 11/11/24 03:11 30 11/11/24 02:58 BiPAP 11/11/24 00:14 30 11/10/24 22:56 Nasal Cannula 4 PG Care Time/CCT Total # of Minutes Spent Total Time Spent with Patient: Total time spent is greater than 50% in coordination of care (as documented) at patient's floor/unit and/or counseling patient: Coding Level of Care Code 31237 SUB INP/OBS CARE 2/35MIN Diagnoses Acute hyponatremia E87.1 Alcohol abuse F10.10 Closed right hip fracture S72.001A Encounter type: initial encounter (3) Closed right hip fracture Encounter type: initial encounter Qualified Code(s): S72.001A - Fracture of unspecified part of neck of right femur, initial encounter for closed fracture
[2024-11-11 12:17] LABS: Anion Gap 2.0 (3-11); Blood Urea Nitrogen 12.0 mg/dl (6-23); Calcium 8.7 mg/dl (8.6-10.3); Carbon Dioxide 36.0 mmol/L (21-32); Chloride 90.0 mmol/L (98-107); Creatinine Clr Calc Pharmacy 114.0 ml/min; Glucose 99.0 mg/dl (70-99(Fasting)); Potassium 4.6 mmol/L (3.5-5.1); Sodium 128.0 mmol/L (136-145)
--- NOTE | 2024-11-11 12:30 | Hospitalist Progress Note ---
Date of Service November 11, 2024 Assessment & Plan (1) Closed right hip fracture: Plan: From mechanical fall. Appreciate orthopedic surgery consultation and recommendations. Right hip hemiarthroplasty hopefully can be completed later today, November 11. (2) SIADH (syndrome of inappropriate ADH production): Plan: Sodium 117 with hypoosmolarity present on admission. Sodium now improved to 128 and stable. Appreciate nephrology consultation and recommendations. She has received 1 dose of tolvaptan and so far. Serial labs (3) Acute exacerbation of chronic bronchitis: Plan: Improved with Levaquin, day 2. Rhonchi have resolved. Continue scheduled nebulizer treatments (4) Acute on chronic respiratory failure with hypoxia: Plan: Supplemental oxygen to maintain saturation greater than 90%. She states she has home oxygen but she does not use it. (5) Hypomagnesemia: Plan: Corrected with parenteral replacement. Serial labs (6) Essential hypertension: Plan: Systolic blood pressure elevation improved with as needed IV hydralazine. Will follow Plan OT and PT evaluations will be obtained postoperatively which will determine disposition. She probably will need a short rehab stay before she can return home. Admission and Anticipated Discharge Date Admission Date: November 09, 2024 Subjective Alert and oriented. No distress. Sodium is now improved to 128. The risks of postponing hip surgery far outweigh any risks associated with mild hyponatremia. I sent a message to orthopedic surgery stating the same. Hopefully right hip fracture surgery can be completed this afternoon, November 11. Nephrology entry noted. Respiratory status is now stable. She is on Levaquin day 2 and she has no audible wheezing. Blood pressure acceptable with as needed IV hydralazine. She has significant diuresis with 1 dose of parenteral Lasix yesterday, November 10. Incentive spirometry has been added since she probably has a degree of atelectasis due to her being bedfast. Her hip needs to be repaired and she needs to be ambulated as soon as possible due to her underlying significant pulmonary disease. Will repeat chest x-ray again tomorrow, November 12. Review of Systems 2 Review of Systems: Constitutionalno fever or chills ENTno blurred vision, no double vision, no epistaxis, no sore throat Respiratoryoccasionally productive cough. No hemoptysis. She states she has oxygen at home but does not use it Cardiacno palpitations, no chest pain, no syncope Lulu nausea, vomiting, diarrhea, melena, hematochezia GUno urinary retention, no urinary incontinence, no dysuria, no hematuria Musculoskeletalright hip discomfort with movement from underlying fracture. No muscle tenderness Skinno bruising, no rashes, no pruritus Neurono isolated weakness, no paresthesia, no weakness Psychno depression, no anxiety Physical Exam 2 Physical Exam: General-alert and oriented x3, no fever, no chills HEENT-head atraumatic and normocephalic, pupils equal and reactive to light, extraocular muscles intact Neck-no lymphadenopathy or thyromegaly, trachea midline Chest-midline rhonchi are no longer audible. Diminished breath sounds bilaterally. No wheezing. No dullness to percussion. Cardiac-regular rate and rhythm, normal S1 and S2 Abdomen-normal bowel sounds, no hepatosplenomegaly Extremities-right lower extremity is slightly shortened due to right hip fracture. No peripheral edema. No cyanosis. Neuro-cranial nerves II through XII intact, motor and sensory function within normal limits, strength symmetrical, no focal deficits Psych-normal affect, normal mood Results & Data Results & Data Vital Signs (Past 12 Hours) Vital Signs Temp Pulse Pulse Resp BP BP Pulse Ox 11/11/24 11:46 36.7 C 79 20 148/100 H 92 11/11/24 11:07 73 20 93 11/11/24 09:08 69 11/11/24 09:00 11/11/24 07:44 36.9 C 75 21 140/93 94 11/11/24 07:17 80 20 94 11/11/24 03:11 74 15 92 11/11/24 02:58 36.6 C 68 18 123/62 92 O2 Del Method O2 Flow Rate FiO2 11/11/24 11:46 Oxymask 4.0 11/11/24 11:07 Oxymask 4 11/11/24 09:08 11/11/24 09:00 Oxymask 4 11/11/24 07:44 Oxymask 4.0 11/11/24 07:17 Oxymask 4 11/11/24 03:11 30 11/11/24 02:58 BiPAP Laboratory Results 11/11/24 06:01 11/11/24 11:34 PG Care Time/CCT Total # of Minutes Spent Total Time Spent with Patient: Total time spent is greater than 50% in coordination of care (as documented) at patient's floor/unit and/or counseling patient: Coding Level of Care Code 47137 SUB INP/OBS CARE MIN Diagnoses Closed right hip fracture S72.001A Encounter type: initial encounter SIADH (syndrome of inappropriate ADH production) E22.2 Acute exacerbation of chronic bronchitis J20.9; J42 Acute on chronic respiratory failure with hypoxia J96.21 Hypomagnesemia E83.42 Essential hypertension I10 (1) Closed right hip fracture Encounter type: initial encounter Qualified Code(s): S72.001A - Fracture of unspecified part of neck of right femur, initial encounter for closed fracture
--- NOTE | 2024-11-11 12:55 | Anesthesiology Consultation ---
Date of Service November 11, 2024 Assessment & Plan Chart Review Chart Review: Acceptable Risk for Surgery and Patient NOT seen in Pre Admission Testing Consults Requested none History Surgery Operation Date: 11/11/24 14:00 Proposed Procedures p Right Anterior Hip Hemiarthroplasty - Evelio Stark DO Height/Weight Height: 5 ft 3 in Weight: 64.4 kg Allergies Allergy/AdvReac Type Severity Reaction Status Date / Time Penicillins Allergy Intermediate Rash Verified 11/09/24 01:59 Medications Home Medications Medication Instructions Recorded Confirmed Last Taken albuterol sulfate 90 mcg/actuation 2 puff inhalation Q4H PRN Wheezing 11/09/24 11/09/24 Unknown aerosol inhaler aspirin 81 mg tablet,delayed 81 mg PO DAILY 11/09/24 11/09/24 11/08/24 release buspirone 10 mg tablet 10 mg PO BID 11/09/24 11/09/24 11/08/24 08:00 clindamycin HCl 300 mg capsule 300 mg PO Q6H 11/09/24 11/09/24 11/08/24 18:00 cyclobenzaprine 5 mg tablet 5 mg PO HS PRN MUSCLE SPASMS 11/09/24 11/09/24 Unknown furosemide 20 mg tablet 20 mg PO DAILY 11/09/24 11/09/24 11/08/24 hydrocodone 10 mg-acetaminophen 1 tab PO BID 11/09/24 11/09/24 11/08/24 08:00 325 mg tablet lisinopril 20 1 tab PO DAILY 11/09/24 11/09/24 11/08/24 mg-hydrochlorothiazide 12.5 mg tablet magnesium oxide 400 mg PO DAILY 11/09/24 11/09/24 11/08/24 metoprolol succinate 25 mg 25 mg PO HS 11/09/24 11/09/24 11/07/24 tablet,extended release 24 hr sulfamethoxazole 800 1 tab PO BID 11/09/24 11/09/24 11/08/24 08:00 mg-trimethoprim 160 mg tablet tiotropium bromide 1.25 2 inh inhalation DAILY 11/09/24 11/09/24 11/08/24 mcg/actuation mist for inhalation (Spiriva Respimat) venlafaxine 100 mg tablet 100 mg PO DAILY 11/09/24 11/09/24 11/08/24 Active Medications Generic Name Dose Route Start Last Admin Trade Name Freq PRN Reason Stop Dose Admin Albuterol 3 ml 11/10/24 11:00 11/11/24 11:07 Albut/Ipratrop 3mg/0.5mg Neb 3 Ml Vial NEB 12/10/24 10:59 3 ml QIDR VANDA Administration Protocol Aspirin 81 mg 11/09/24 09:00 11/11/24 09:41 Aspirin 81 Mg Ectab PO 12/09/24 08:59 81 mg DAILY VANDA Administration Buspirone HCl 10 mg 11/09/24 09:00 11/11/24 09:41 Buspirone 5 Mg Tab PO 12/09/24 08:59 10 mg BID VANDA Administration Thiamine HCl 500 mg/ Sodium 55 mls @ 210 mls/hr 11/09/24 10:00 11/11/24 10:00 Chloride IV 12/09/24 09:59 Infused Q8H VANDA Infusion Levofloxacin/Dextrose 750 mg in 150 mls @ 100 mls/hr 11/10/24 10:30 11/11/24 12:49 Levaquin/D5w IV 11/15/24 10:29 Infused Q24H VANDA Infusion Protocol Metoprolol Succinate 25 mg 11/09/24 21:00 11/10/24 20:37 Metoprolol Succ 25mg Ext Rel Tab PO 12/09/24 20:59 25 mg HS VANDA Administration Oxycodone HCl 10 mg 11/09/24 09:19 11/11/24 07:29 Oxycodone Hcl Ir 5 Mg Tab (Immediate Release) PO 11/23/24 09:18 10 mg Q4H PRN Administration Moderate Pain 4-6/10 Sodium Chloride 2 gm 11/10/24 21:00 11/11/24 09:41 Sodium Chloride 1 Gm Tablet PO 12/10/24 20:59 2 gm BID VANDA Administration Umeclidinium [place] 1 puffs 11/09/24 09:00 11/11/24 09:41 Umeclidinium [place] 62.5mcg/Blister 7 Puffs/Inhaler INH 12/09/24 08:59 1 puffs DAILY VANDA Administration Venlafaxine HCl 100 mg 11/09/24 09:00 11/11/24 09:41 Venlafaxine Hcl 50 Mg Tab PO 12/09/24 08:59 100 mg DAILY VANDA Administration Social History Smoking Status: Current every day smoker Do You Dip or Chew Tobacco: No Hx Alcohol Use: Yes Alcohol type: beer alcohol intake frequency: 3 or more drinks per day Hx Substance Use: No Physical Exam Vital Signs Last Vital Signs Temp 36.7 C 11/11/24 11:46 Pulse 79 11/11/24 11:46 Resp 20 11/11/24 11:46 BP 148/100 H 11/11/24 11:46 Pulse Ox 92 11/11/24 11:46 O2 Del Method Oxymask 11/11/24 11:46 O2 Flow Rate 4.0 11/11/24 11:46 FiO2 30 11/11/24 03:11 Testing Laboratory Results 11/11/24 06:01 11/11/24 11:34 PT 12.2 Seconds (9.0-12.0) H 11/09/24 00:54 INR 1.1 (0.9-1.1) 11/09/24 00:54 APTT 29 Seconds (21-31) 11/09/24 00:54 Urine Color Yellow 11/09/24 15:40 Urine Appearance Clear (Clear) 11/09/24 15:40 Urine pH 7.0 (4.5-7.5) 11/09/24 15:40 Ur Specific [place] 1.003 (1.000-1.030) 11/09/24 15:40 Urine Protein Negative (Negative) 11/09/24 15:40 Urine Glucose (UA) Negative (Negative) 11/09/24 15:40 Urine Ketones Negative (Negative) 11/09/24 15:40 Urine Nitrite Negative (Negative) 11/09/24 15:40 Ur Leukocyte Esterase Negative (Negative) 11/09/24 15:40 Urine WBC (Auto) 0-5 /hpf (0-5) 11/09/24 02:20 Urine RBC (Auto) 0-2 /hpf (0-2) 11/09/24 02:20 U Hyaline Cast (Auto) 0-2 /lpf (0-2) 11/09/24 02:20 U Epithel Cells (Auto) 0-2 /hpf (0-2) 11/09/24 02:20 Urine Bacteria (Auto) None Seen (None Seen) 11/09/24 02:20 Blood Type A Positive 11/11/24 06:01 Antibody Screen NEGATIVE 11/11/24 06:01 11/10/24 14:25 Gram Stain - Final Sputum, Expectorated Sputum Culture - Preliminary Light normal kath present, final report to follow.
[2024-11-11] MEDS ORDERED: BUPIVACAINE 0.25% PF 30 ML VIAL ONE (13:54)
--- NOTE | 2024-11-11 13:58 | History & Physical Bridge Note ---
Date of Service November 11, 2024 History & Physical Bridge Note I have examined the patient, reviewed the History & Physical and in the interval since the performance of the History & Physical I have noted the following changes of clinical significance: This is a 63-year-old female who appears much older than stated age who presented to the emergency department for evaluation of her right hip after a fall that occurred last evening. In the emergency department, she was hypoxic which was considered secondary to somnolence and her smoking history/COPD. This responded with supplemental oxygen and arousal. Additionally, the patient was found to be profoundly hyponatremic. I had a long discussion with patient regarding her current presentation. Discussed in great detail the pathoanatomy, pathophysiology, treatment options for her right hip. Her fracture represents a completely displaced femoral neck fracture and as such my recommendation for her would be an arthroplasty type procedure. I discussed with her that 2 options for arthroplasty procedures would be a hemiarthroplasty versus total hip arthroplasty. Given the patient's age alone, total hip arthroplasty might be the preferable procedure, however given the patient's current medical status being that she is profoundly hyponatremic and has a history significant for alcohol and tobacco abuse, a hemiarthroplasty may be a safer procedure for her. With regards to total hip arthroplasty, while this potentially decreases the need for future surgery, does carry with a higher risk of dislocation and a hemiarthroplasty. There is also a more involved procedure. Hemiarthroplasty does have risks of dislocation as well, but these are lower than a total hip arthroplasty. Both surgeries would carry with them the risk of loss of life/limb, DVT, incomplete relief of pain, need for additional surgery, infection, hardware complication, hardware failure, dislocation. The alternative surgical management would be for nonoperative care. I expressed the patient that this would likely involve a significant period of time of nonweightbearing due to the pain associated with attempted weightbearing. Nonoperative care additionally carries with high risks of complications of immobilization such as ulcers, DVT, pneumonia. After thorough discussion of the risk, benefits and alternative surgical management, the patient is interested in pursuing operative care. Given the risks associate with total hip arthroplasty, the patient is more interested in hemiarthroplasty which I do believe is a more appropriate procedure for her. At this point, the patient's hyponatremia has improved and stabilized. Per discussion with anesthesia, at this time it is felt as if she is safe enough to proceed with operative intervention. Surgical plan: Right hip hemiarthroplasty via an anterior approach
[2024-11-11] MEDS: LACTATED RINGER'S 1,000 ML IV SCH (14:00)
[2024-11-11] MEDS ORDERED: LIDOCAINE 2% 2 ML VIAL/AMP(20MG/ML) INFIL ONE (14:02)
[2024-11-11] MEDS ORDERED: PROPOFOL IV EMULSION 10 MG/ML 20 ML VIAL IV ONE (14:03)
[2024-11-11] MEDS ORDERED: ATROPINE SULFATE 0.1 MG/ML 10ML SYR IV PRN ×2 (14:05→15:09)
[2024-11-11] MEDS ORDERED: ONDANSETRON INJ 2 MG/ML 2 ML VIAL IV PRN ×2 (14:05→15:09)
[2024-11-11] MEDS ORDERED: KETAMINE HCL 10MG/ML SYR ONE (14:08)
[2024-11-11] MEDS ORDERED: MIDAZOLAM HCL 1 MG/ML 2ML VIAL ONE (14:08)
[2024-11-11] MEDS ORDERED: PROPOFOL IV EMULSION 10 MG/ML 100 ML VIAL IV ONE (14:09)
[2024-11-11] MEDS: TRANEXAMIC ACID / 0.7% NACL 1000MG/100ML BAG IV ONE (14:42)
[2024-11-11] MEDS ORDERED: PHENYLEPHRINE 100MCG/ML 5ML SYR ONE (15:51)
[2024-11-11] MEDS: ROPIVACAINE 0.5% HCL/PF 246 MG, Ketorolac (*for OR use only*) 30 MG, EPINEPHrine 30MG/3... INFIL SCH (16:56)
[2024-11-11] MEDS: VANCOMYCIN HCL 1000MG/20ML VIAL ONE (16:59)
--- NOTE | 2024-11-11 17:48 | Post Operative Brief Note ---
Immediate Post Op Note Date of Surgery November 11, 2024 Pre & Post Diagnosis Operation Date: 11/11/24 14:00 Pre-Op Diagnosis: Closed right hip fracture Post-Op Diagnosis: Closed right hip fracture I identified the patient and participated in the time-out.: Yes Procedure Operation Date: 11/11/24 14:00 Actual Procedures p Right Anterior Hip Hemiarthroplasty(Right) - Evelio Stark DO 1. Right hip anterior hip hemiarthroplasty 2. Prophylactic fixation of proximal femur Surgeon Evelio Stark DO Recruiting And Selection Consultant none Estimated Blood Loss 250 Findings See Below During broaching a nondisplaced fracture of the calar was noticed and as such was prophylactically fixed with a cerclage cable Drains Hernández Catheter (Patient noted to have hernández in [facility]SU 1 bay 9 prior to surgery.) Complications none Disposition Disposition: Recovery Room Overlapping Procedure I was present for: the critical portions of procedure. (the entire case)
--- NOTE | 2024-11-11 17:50 | Operative Report ---
Post Operative Report Pre & Post Diagnosis Operation Date: 11/11/24 14:00 Pre-Op Diagnosis: Closed right hip fracture Post-Op Diagnosis: Closed right hip fracture I identified the patient and participated in the time-out.: Yes Procedure Operation Date: 11/11/24 14:00 Actual Procedures p Right Anterior Hip Hemiarthroplasty(Right) - Evelio Stark DO 1. Right hip anterior hip hemiarthroplasty 2. Prophylactic fixation of right proximal femur 3. Application negative pressure wound therapy Surgeon Evelio Stark DO Foreign Student Adviser none Estimated Blood Loss 250 Findings See Below During broaching a nondisplaced fracture of the calar was noticed and as such was prophylactically fixed with a cerclage cable Specimens 1. right femoral head Complications none Disposition Disposition: Recovery Room Indications This is a 63-year-old female who appears much older than stated age who presented to the emergency department for evaluation of her right hip after a fall that occurred last evening. In the emergency department, she was hypoxic which was considered secondary to somnolence and her smoking history/COPD. This responded with supplemental oxygen and arousal. Additionally, the patient was found to be profoundly hyponatremic. I had a long discussion with patient regarding her current presentation. Discussed in great detail the pathoanatomy, pathophysiology, treatment options for her right hip. Her fracture represents a completely displaced femoral neck fracture and as such my recommendation for her would be an arthroplasty type procedure. I discussed with her that 2 options for arthroplasty procedures would be a hemiarthroplasty versus total hip arthroplasty. Given the patient's age alone, total hip arthroplasty might be the preferable procedure, however given the patient's current medical status being that she is profoundly hyponatremic and has a history significant for alcohol and tobacco abuse, a hemiarthroplasty may be a safer procedure for her. With regards to total hip arthroplasty, while this potentially decreases the need for future surgery, does carry with a higher risk of dislocation and a hemiarthroplasty. There is also a more involved procedure. Hemiarthroplasty does have risks of dislocation as well, but these are lower than a total hip arthroplasty. Both surgeries would carry with them the risk of loss of life/limb, DVT, incomplete relief of pain, need for additional surgery, infection, hardware complication, hardware failure, dislocation. The alternative surgical management would be for nonoperative care. I expressed the patient that this would likely involve a significant period of time of nonweightbearing due to the pain associated with attempted weightbearing. Nonoperative care additionally carries with high risks of complications of immobilization such as ulcers, DVT, pneumonia. After thorough discussion of the risk, benefits and alternative surgical management, the patient is interested in pursuing operative care. Given the risks associate with total hip arthroplasty, the patient is more interested in hemiarthroplasty which I do believe is a more appropriate procedure for her. At this point, the patient's hyponatremia has improved and stabilized. Per discussion with anesthesia, at this time it is felt as if she is safe enough to proceed with operative intervention. Surgical plan: Right hip hemiarthroplasty via an anterior approach Description of Procedure After informed consent was obtained, the patient was correctly identified in the preoperative holding suite, the operative site was marked with the surgeon's initials, the date of surgery, and the word yes. The patient was then taken to the operative suite. The department of anesthesia administered spinal anesthesia. The patient was transferred from the [facility] to the operative table. All bony prominences were well-padded. Briefing and timeout was performed. All implants were available and sterile at the time. BRIEFING AND DEBRIEFING: Pre and post operative briefing and debriefing was performed. Introductions were made, goals of the procedure were discussed, questions and concerns were addressed. The operative site markings were identified and appropriate. A time [id number] was performed, the patient's correct identity was confirmed and the correct operative sites were identified. The patients pre-operative antibiotic dosing and administration was confirmed along with other SCIP measures. The team was polled at the completion of the surgery and all team members were in agreement that the procedure was without complication, the counts are correct, the wound class was identified and suggestions for improvement were shared. We placed the patients feet in the [place] boots and transferred her in supine fashion from the hospital bed to the [place] table. We secured the perineal post and placed her left arm on a well padded arm board. Her right arm was well padded and placed across her chest. we prepped and draped the right hip in standard sterile fashion using an ioban shower curtain. we planned for our incision being a direct anterior approach starting 2 cm lateral and 2 cm distal to the ASIS. We incised sharply through skin and subcutaneous tissue. we dissected bluntly down to the fascia and incised the fascia over the TFL sharply within the TFL sheath we dissected medially over the muscle belly and retracted the TFL laterally we then dissected though the floor of the TFL sheath bluntly to identify and ligate the branches with the ascending branches of the lateral femoral circumflex. Next, we placed the Cobra retractor over the superior neck and a blunt cobra over the inferior neck. We cleared pericapsular fat off the capsule and then performed a H capsulectomy. We moved the retractors intracapsular and then began externally rotating the leg dissecting down until we identified the lesser trochanter. Placed a finger on the lesser trochanter and then marked our planned neck cut with the Bovie. We checked this fluoroscopically and were satisfied. Using the oscillating saw we made a neck cut and remove the napkin ring. Next, we used the corkscrew to remove the f emoral head from the acetabulum. The pulvinar was cauterized and removed. We then trialed shells until we were satisfied with a 48 mm shell. Next, we externally rotated the leg and we performed our releases around the femoral neck cut including a posterior release in order to place our retractors during femoral canal preparation. We would place the #8 retractor behind the greater trochanter and the blunt Kelly around the lesser trochanter, we would drop the leg and adductor the leg in order to expose the proximal femur. First we used the canal finding rasp to find the femoral canal and use this as well as the lateralizing rasp to appropriately lateralized. We then used the box osteotome to ensure that we were appropriately lateral within the proximal femur. Next, sequentially using broaches from the [employer] complete system we broached sequentially until a #5 broach. While placing this broach, a nondisplaced calcar fracture was identified and so this approach was removed, and #4 broach was placed, a cerclage cable was placed around the proximal femur and tightened in place over the #4 broach. We then returned to the #5 broach watching the nondisplaced calcar fracture to ensure no displacement and after we had placed this broach, we noticed that it sat nicely within the femoral canal and was stable. We then placed a standard neck trial and a 0 mm head onto the broach a nd reduced the hip. We checked fluoroscopic images and felt that although this was stable her limb lengths were slightly off so we dislocated the hip placed a +3.5 mm trial and then reduced the hip again. This brought the limb lengths much closer and we then tested the stability of the implants. With external rotation 220 degrees and lateral translation, the hip was unable to be dislocated so we felt as if the hip was stable. We then dislocated the hip, removed the trial implants and thoroughly irrigated the canal. We then opened the final implants which included a #5 standard Avenir complete stem, a 28 mm +3.5 mm head, a 48 mm shell. We impacted the stem into place and were satisfied with its stability as well as the stability of the nondisplaced calcar fracture. We placed the head in the shell onto the stem and then we reduced the final implants. We checked final fluoroscopic images were satisfied with the position of the implants, the stability of the construct, and the limb length. We thoroughly irrigated the wound and placed 1 g of vancomycin powder within the wound and then began our layered closure. In the TFL fascia we ran a oh strata fix. In the subcutaneous tissue we placed inverted 2-0 Vicryl sutures and in the subcuticular tissue we ran a 3 oh strata fix. We reinforced the skin with skin glue and placed a mansi negative pressure wound dressing on top of the wound. The patient tolerated this procedure well and was transferred to the PACU in stable condition. Prior to transportation to PACU, all counts were correct and a briefing was performed at the end of the case. Physician-directed fluoroscopy for greater than one hour was performed by myself to verify fracture alignment and the safe placement of all internal fixation. The final images saved to PACs showed views demonstrating satisfactory alignment of the fracture and stable internal fixation. Implant verification was performed by myself by reading and confirming the implant information on the packaging with the team before the sterile implants were opened. I was present for the entire procedure. Plan: Weight bearing status: As tolerated right lower extremity Wound care: Keep dressings clean and dry Range of motion: As tolerated VTE Prophylaxis: Okay to resume from orthopedic standpoint Antibiotics: Perioperative Ancef Pain Control: Multimodal Discharge Plan: Pending PT/OT Follow Up: With myself in 1 to 2 weeks I attest to the content of the Intraoperative Record and any orders documented therein. Any exceptions are noted below.
--- NOTE | 2024-11-11 18:13 | Anesthesiology Progress Note ---
Date of Service November 11, 2024 Anesthesia Post Procedure Vital Signs Vital Signs: Temp Pulse Pulse Pulse Resp BP BP 11/11/24 18:00 68 14 142/81 H 11/11/24 17:50 67 22 143/85 H 11/11/24 17:40 36.2 C L 77 20 118/77 11/11/24 13:45 36.4 C L 84 22 163/105 H 159/102 H 11/11/24 13:43 82 11/11/24 11:46 36.7 C 79 20 148/100 H 11/11/24 11:07 73 20 11/11/24 09:08 69 11/11/24 09:00 11/11/24 07:44 36.9 C 75 21 140/93 11/11/24 07:17 80 20 11/11/24 03:11 74 15 11/11/24 02:58 36.6 C 68 18 123/62 11/11/24 00:14 70 20 11/10/24 22:56 36.6 C 67 18 130/68 11/10/24 19:56 36.7 C 11/10/24 19:45 80 22 135/69 11/10/24 19:36 87 24 11/10/24 19:30 Pulse Ox O2 Del Method O2 Flow Rate FiO2 11/11/24 18:00 95 Oxymask 4 11/11/24 17:50 100 Oxymask 6 11/11/24 17:40 95 Oxymask 8 11/11/24 13:45 92 Oxymask 4 11/11/24 13:43 11/11/24 11:46 92 Oxymask 4.0 11/11/24 11:07 93 Oxymask 4 11/11/24 09:08 11/11/24 09:00 Oxymask 4 11/11/24 07:44 94 Oxymask 4.0 11/11/24 07:17 94 Oxymask 4 11/11/24 03:11 92 30 11/11/24 02:58 92 BiPAP 11/11/24 00:14 96 30 11/10/24 22:56 93 Nasal Cannula 4 11/10/24 19:56 11/10/24 19:45 97 Oxymask 4 11/10/24 19:36 94 Nasal Cannula 4 11/10/24 19:30 Oxymask 4 Pain Intensity Right Hip: Pain Intensity: 3 Transfer of Care Handoff Completed per policy Notes Mental Status: alert / awake / arousable Patient Amnestic to Procedure: Yes Nausea / Vomiting: adequately controlled Pain: adequately controlled Airway Patency, RR, SpO2: stable & adequate BP & HR: stable & adequate Hydration State: stable & adequate Neuraxial Anesthesia: was administered and sensory block is resolving Anesthetic Complications: no major complications apparent and Pt Satisfied with anesthetic care
--- NOTE | 2024-11-11 19:02 | XRay Report ---
EXAM: XR hip RT min 2V CLINICAL HISTORY: Post-Operative implant position TECHNIQUE: X-ray images of the right hip joint was performed in AP and lateral projections. COMPARISON: 11/09/2024 FINDINGS: Right hip Joint: Evidence of right hip arthroplasty without evidence of prosthesis loosening or breaking Soft Tissues: Visualized soft tissues are normal and unremarkable. No soft tissue swelling, calcifications, or masses. IMPRESSION: Evidence of right hip arthroplasty without evidence of prothesis loosening or breaking. (New findings) Disclaimer: A subtle bone abnormality or fracture may not be readily apparent on X-rays, thus clinical correlation and further imaging including follow-up CT, MRI, or follow-up X-rays are advised as needed. Electronically signed by Lambert Neely 11-11-2024 7:00 PM
[2024-11-12 06:42] LABS: Hematocrit (blood only) 42.3 % (37.0-47.0); Hemoglobin 13.3 g/dl (12.0-16.0); Immature Granulocytes # (auto) 0.00 K/uL (0.01-0.20); Immature Granulocytes % (auto) 0.0 %; Mean Corpuscular Hemoglobin 30.9 pg (25.0-34.0); Mean Corpuscular Volume 98.4 fL (80.0-100.0); Platelet Count 146 K/uL (130-400); RDW Standard Deviation 72.2 fL (36.4-46.3); Red Blood Count 4.30 M/uL (4.20-5.40); White Blood Count 5.05 K/ul (4.8-10.8)
--- NOTE | 2024-11-12 06:54 | Fluoroscopy Report ---
FL hip RT 1V CLINICAL HISTORY: RIGHT ANTERIOR HIP COMPARISON STUDY: Right hip radiographs November 09, 2024. Fluoroscopy time: 55 seconds. Number of fluoroscopic images: 5 Ka,r: 4.5667 mGy. FINDINGS: The initial fluoroscopic images again demonstrates the right femoral neck fracture. Fluoros copy was provided during anterior right hip arthroplasty. Cerclage wire is in place. Hardware is inta ct. No unexpected radiopaque foreign bodies are present. IMPRESSION: Fluoroscopy provided during anterior right hip arthroplasty. ACT 112: Negative or not required by law. Electronically signed by: Moody Rojas M.D. 11/12/2024 6:52 AM
[2024-11-12 07:00] LABS: Anion Gap 5.0 (3-11); Blood Urea Nitrogen 12.0 mg/dl (6-23); Calcium 8.3 mg/dl (8.6-10.3); Carbon Dioxide 35.0 mmol/L (21-32); Chloride 87.0 mmol/L (98-107); Creatinine Clr Calc Pharmacy 102.2 ml/min; Glucose 105.0 mg/dl (70-99(Fasting)); Magnesium 1.5 mg/dl (1.7-2.4); Potassium 4.5 mmol/L (3.5-5.1); Sodium 127.0 mmol/L (136-145)
--- NOTE | 2024-11-12 07:44 | XRay Report ---
EXAM: XR chest 1V portable CLINICAL HISTORY: COPD, pulm vasc congestion. TECHNIQUE: An X-ray image of the chest is obtained in AP projection. COMPARISON: 11/09/2024. FINDINGS: Pulmonary Parenchyma: Left lower lobe patchy opacity noted. Bilateral minimal blunting of both CP angles could be due to pleural thickening or minimal effusion. Heart and Mediastinum: Curvilinear calcification of the aortic arch. Cardiomegaly. Bony Thorax: Bony thorax appears intact without fractures or deformities. Soft Tissues: Soft tissues overlying the chest wall are unremarkable. IMPRESSION: 1. Left lower lobe patchy opacity noted could represent pulmonary infiltrates. New. 2. Bilateral minimal blunting of both CP angles could be due to pleural thickening or minimal effusion. stable. Electronically signed by Lambert Neely 11-12-2024 07:41 AM
[2024-11-12 09:11] LABS: Prealbumin 11.9 mg/dl (20-40)
--- NOTE | 2024-11-12 10:05 | Nephrology Progress Note ---
Date of Service November 12, 2024 Assessment & Plan (1) Acute hyponatremia: (2) Alcohol abuse: (3) Closed right hip fracture: Plan 63-year-old female with past medical history significant for hypertension, smoking and alcohol abuse, admitted to the hospital after a fall at home and right hip fracture and found to have acute hyponatremia. Serum sodium was 117 on admission and since admission and repeated labs sodium staying around 116- 117. Urine osmolality was 220 and urine sodium was appropriately low at 35. Clinically seems euvolemic. Blood pressure slightly elevated with ongoing pain related to right hip fracture. Orthopedic surgery on hold because of hyponatremia. CT chest showed moderate pulmonary emphysema but no pulmonary nodule noted to have significant atherosclerotic disease of coronary arteries. Had right hip hemiarthroplasty on 11/11/2024. Acute hyponatremia possibly secondary to combination of factors including intractable pain, COPD, excessive alcohol. Sodium improved to 128 and again slightly dropped to 127 this morning. --Explained that her blood pressure has been staying well-controlled and epistaxis most likely secondary to nasal cannula oxygen and not because of her salt tabs. Her sodium dropped again this morning so definitely recommend continuing on salt tab 2 g twice a day. Will consider slowly decreasing salt tab if sodium normalized. -- Fluid restriction to 1500 mL/day -- Encouraged increased protein intake --Discussed importance of quitting smoking and excessive alcohol to avoid repeated episodes of hyponatremia. --Keep off of thiazide diuretics in future. Admission and Anticipated Discharge Date Admission Date: November 09, 2024 Korin Lanier was seen and evaluated this morning. She had right hip hemiarthroplasty yesterday afternoon, surgery went well but continues to have significant pain. Sodium dropped to 127 this morning. Has been having dryness in her nose and some epistaxis most likely because high flow nasal cannula oxygen. She is concerned that salt tablet is doing all those. Review of Systems Review of Systems: Detailed review of system was done and pertinent positives and negatives mentioned above. Physical Exam Constitutional: WD/WN, vitals as above + ill appearing; no acute distress Eyes: + anicteric sclerae Respiratory: no respiratory distress Auscultation: + diminished lung sounds Cardiovascular: RRR, no murmur, no edema Rate/Rhythm: regular rate and regular rhythm Heart Sounds: normal S1 and normal S2 Musculoskeletal: Extremities: extremities normal to inspection Skin: no rashes, warm and dry Neurologic: no focal motor deficits and not confused Psychiatric: Orientation: alert and oriented x 3 Affect: euthymic affect Results & Data Vital Signs (Past 12 Hours) Vital Signs Temp Pulse Pulse Resp BP Pulse Ox O2 Del Method 11/12/24 07:59 37.1 C 89 20 131/76 Nasal Cannula 11/12/24 07:45 Nasal Cannula, Oxymask 11/12/24 07:44 82 11/12/24 07:11 85 18 95 Nasal Cannula 11/12/24 02:47 37.0 C 69 18 137/85 99 Nasal Cannula 11/11/24 23:19 36.7 C 16 140/87 99 Nasal Cannula O2 Flow Rate 11/12/24 07:59 3 11/12/24 07:45 4 11/12/24 07:44 11/12/24 07:11 4 11/12/24 02:47 4.0 11/11/24 23:19 4.0 PG Care Time/CCT Total # of Minutes Spent Total Time Spent with Patient: Total time spent is greater than 50% in coordination of care (as documented) at patient's floor/unit and/or counseling patient: Coding Level of Care Code 55957 SUB INP/OBS CARE 2/35MIN Diagnoses Acute hyponatremia E87.1 Alcohol abuse F10.10 Closed right hip fracture S72.001A Encounter type: initial encounter (3) Closed right hip fracture Encounter type: initial encounter Qualified Code(s): S72.001A - Fracture of unspecified part of neck of right femur, initial encounter for closed fracture
[2024-11-12] MEDS: CHOLECALCIFEROL 125 MCG (5,000 UNITS) TAB PO SCH (10:30)
[2024-11-12] MEDS: MAGNESIUM SULFATE / D5W 1 GM/100 ML BAG IV SCH (10:30)
[2024-11-12] MEDS: MoRPHine SULFATE 2 MG/ML CARP IV PRN (11:27)
--- NOTE | 2024-11-12 12:30 | Orthopedic Progress Note ---
Date of Service November 12, 2024 Assessment & Plan (1) Closed right hip fracture: (2) Essential hypertension: (3) Acute on chronic respiratory failure with hypoxia: (4) Acute exacerbation of chronic bronchitis: (5) SIADH (syndrome of inappropriate ADH production): (6) Alcohol abuse: (7) Tobacco abuse: (8) Acute hyponatremia: Plan Postoperative day #1 status post right hip hemiarthroplasty for right femoral neck fracture. Overall the patient is doing well postoperatively. She can weight-bear as tolerated. She should work with PT and OT to determine an appropriate discharge plan. She will continue have her sodium repleted by medicine and nephrology is also on board. Patient will follow-up with me in about a week for wound check and x-rays. Admission and Anticipated Discharge Date Admission Date: November 09, 2024 Subjective Patient seen and evaluated this morning. She is sitting up eating breakfast in bed. Notes that she has pain in her hip but overall she is doing well. Review of Systems Review of Systems: All systems reviewed & are unremarkable except as noted in HPI & below Physical Exam Physical Exam: Dressing clean dry and intact. Mild strikethrough noted at the top. Patient demonstrates active hip range of motion without issue. Foot is warm and well- perfused. EHL/FHL/GSC/TA motor intact Results & Data Vital Signs (Past 12 Hours) Vital Signs Temp Pulse Pulse Resp BP Pulse Ox O2 Del Method 11/12/24 11:34 36.9 C 94 H 20 101/52 L 94 Nasal Cannula 11/12/24 11:17 86 18 94 Nasal Cannula 11/12/24 07:59 37.1 C 89 20 131/76 Nasal Cannula 11/12/24 07:45 Nasal Cannula, Oxymask 11/12/24 07:44 82 11/12/24 07:11 85 18 95 Nasal Cannula 11/12/24 02:47 37.0 C 69 18 137/85 99 Nasal Cannula O2 Flow Rate 11/12/24 11:34 6 11/12/24 11:17 3 11/12/24 07:59 3 11/12/24 07:45 4 11/12/24 07:44 11/12/24 07:11 4 11/12/24 02:47 4.0 Diagnostic Findings Postoperative imaging review demonstrates stable internal right hip hemiarthroplasty prosthesis and cerclage wire. (1) Closed right hip fracture Encounter type: initial encounter Qualified Code(s): S72.001A - Fracture of unspecified part of neck of right femur, initial encounter for closed fracture
--- NOTE | 2024-11-12 14:44 | Hospitalist Progress Note ---
Date of Service November 12, 2024 Assessment & Plan (1) Closed right hip fracture: Plan: From mechanical fall. Appreciate orthopedic surgery consultation and recommendations. Right hip hemiarthroplasty was completed on November 11. Postoperative day #1. This most likely was a pathologic fracture related to underlying osteoporosis (2) SIADH (syndrome of inappropriate ADH production): Plan: Sodium 117 with hypoosmolarity present on admission. Sodium improved to 128 maximum and is 127 today, November 12. Appreciate nephrology consult and recommendations. Continue oral salt tablets and daily lab. She has also received 1 dose of tolvaptan this admission (3) Acute exacerbation of chronic bronchitis: Plan: Improved with Levaquin, day 3. Rhonchi have resolved. Chest x-ray done today, November 12, reveals left lower lobe infiltrate but clinically she does not have pneumonia. This may simply represent atelectasis. Incentive spirometry has been ordered. Continue scheduled nebulizer treatments (4) Acute on chronic respiratory failure with hypoxia: Plan: Supplemental oxygen to maintain saturation greater than 90%. She states she has home oxygen but she does not use it. (5) Hypomagnesemia: Plan: Corrected with parenteral replacement. Serial labs (6) Essential hypertension: Plan: Systolic blood pressure elevation improved with as needed IV hydralazine. Will follow (7) Vitamin D deficiency: Plan: Contributing to underlying osteoporosis. Oral vitamin D supplementation started. Plan OT and PT evaluations have been requested. She is aware that she will need a rehabilitation stay before she can return home. Admission and Anticipated Discharge Date Admission Date: November 09, 2024 Subjective Alert and oriented. No acute problems. Nephrology and orthopedic entries noted. Postoperative day 1 after right hip hemiarthroplasty completed. Parenteral Levaquin switched to oral dosing. Intravenous magnesium ordered today, November 12. Vitamin D has been started for deficiency. Chest x-ray done today, November 12, reveals left lower lobe infiltrate that may simply be atelectatic. She does not have symptoms of pneumonia. Intravenous Levaquin switched to oral dosing. Review of Systems 2 Review of Systems: Constitutionalno fever or chills ENTno blurred vision, no double vision, no epistaxis, no sore throat Respiratoryoccasionally productive cough has resolved. No hemoptysis. She states she has oxygen at home but does not use it Cardiacno palpitations, no chest pain, no syncope Lulu nausea, vomiting, diarrhea, melena, hematochezia GUno urinary retention, no urinary incontinence, no dysuria, no hematuria Musculoskeletalright hip discomfort with movement from underlying fracture. No muscle tenderness Skinno bruising, no rashes, no pruritus Neurono isolated weakness, no paresthesia, no weakness Psychno depression, no anxiety Physical Exam 2 Physical Exam: General-alert and oriented x3, no fever, no chills HEENT-head atraumatic and normocephalic, pupils equal and reactive to light, extraocular muscles intact Neck-no lymphadenopathy or thyromegaly, trachea midline Chest-midline rhonchi are no longer audible. Diminished breath sounds bilaterally. No wheezing. No dullness to percussion. Cardiac-regular rate and rhythm, normal S1 and S2 Abdomen-normal bowel sounds, no hepatosplenomegaly Extremities-right lower extremity is slightly shortened due to right hip fracture. No peripheral edema. No cyanosis. Neuro-cranial nerves II through XII intact, motor and sensory function within normal limits, strength symmetrical, no focal deficits Psych-normal affect, normal mood Results & Data Results & Data Vital Signs (Past 12 Hours) Vital Signs Temp Pulse Pulse Resp BP Pulse Ox O2 Del Method 11/12/24 14:28 80 20 92 Nasal Cannula 11/12/24 11:34 36.9 C 94 H 20 101/52 L 94 Nasal Cannula 11/12/24 11:17 86 18 94 Nasal Cannula 11/12/24 07:59 37.1 C 89 20 131/76 Nasal Cannula 11/12/24 07:45 Nasal Cannula, Oxymask 11/12/24 07:44 82 11/12/24 07:11 85 18 95 Nasal Cannula 11/12/24 02:47 37.0 C 69 18 137/85 99 Nasal Cannula O2 Flow Rate 11/12/24 14:28 3 11/12/24 11:34 6 11/12/24 11:17 3 11/12/24 07:59 3 11/12/24 07:45 4 11/12/24 07:44 11/12/24 07:11 4 11/12/24 02:47 4.0 Laboratory Results 11/12/24 05:56 11/12/24 05:56 PG Care Time/CCT Total # of Minutes Spent Total Time Spent with Patient: Total time spent is greater than 50% in coordination of care (as documented) at patient's floor/unit and/or counseling patient: Coding Level of Care Code 69492 SUB INP/OBS CARE MIN Diagnoses Closed right hip fracture S72.001A Encounter type: initial encounter SIADH (syndrome of inappropriate ADH production) E22.2 Acute exacerbation of chronic bronchitis J20.9; J42 Acute on chronic respiratory failure with hypoxia J96.21 Hypomagnesemia E83.42 Essential hypertension I10 Vitamin D deficiency E55.9 (1) Closed right hip fracture Encounter type: initial encounter Qualified Code(s): S72.001A - Fracture of unspecified part of neck of right femur, initial encounter for closed fracture
[2024-11-12] MEDS: MELATONIN 3 MG TAB PO PRN (21:09)
[2024-11-13 07:34] LABS: Hematocrit (blood only) 35.3 % (37.0-47.0); Hemoglobin 11.7 g/dl (12.0-16.0); Mean Corpuscular Hemoglobin 31.8 pg (25.0-34.0); Mean Corpuscular Volume 95.9 fL (80.0-100.0); Platelet Count 133 K/uL (130-400); RDW Standard Deviation 68.0 fL (36.4-46.3); Red Blood Count 3.68 M/uL (4.20-5.40); White Blood Count 6.97 K/ul (4.8-10.8)
--- NOTE | 2024-11-13 07:36 | Orthopedic Progress Note ---
Date of Service November 13, 2024 Assessment & Plan (1) Closed right hip fracture: (2) Essential hypertension: (3) Acute on chronic respiratory failure with hypoxia: (4) Acute exacerbation of chronic bronchitis: (5) SIADH (syndrome of inappropriate ADH production): (6) Alcohol abuse: (7) Tobacco abuse: (8) Acute hyponatremia: Plan Postoperative day #2 status post right hip hemiarthroplasty for right femoral neck fracture. Overall the patient is doing well postoperatively. She can weight-bear as tolerated. She notes that she will be discharged to [facility] upon medical stability. She will continue have her sodium repleted by medicine and nephrology is also on board. Patient will follow-up with me in about a week for wound check and x-rays. Admission and Anticipated Discharge Date Admission Date: November 09, 2024 Subjective Patient doing well this morning. Notes pain is improved. Was able to get up and walk around the [place] with physical therapy yesterday. Review of Systems Review of Systems: All systems reviewed & are unremarkable except as noted in HPI & below Physical Exam Physical Exam: Dressing clean dry and intact. Mild strikethrough noted at the top. Patient demonstrates active hip range of motion without issue. Foot is warm and well- perfused. EHL/FHL/GSC/TA motor intact Results & Data Vital Signs (Past 12 Hours) Vital Signs Temp Pulse Pulse Resp BP Pulse Ox O2 Del Method 11/13/24 07:16 84 11/13/24 07:12 74 15 95 Nasal Cannula 11/13/24 03:12 37.2 C 80 17 137/67 95 Nasal Cannula 11/12/24 22:51 37.4 C 888 H 17 144/73 H 99 Nasal Cannula 11/12/24 22:12 80 11/12/24 21:44 Nasal Cannula 11/12/24 19:40 37 C 88 18 129/70 99 Nebulizer O2 Flow Rate 11/13/24 07:16 11/13/24 07:12 2 11/13/24 03:12 3 11/12/24 22:51 3 11/12/24 22:12 11/12/24 21:44 4 11/12/24 19:40 (1) Closed right hip fracture Encounter type: initial encounter Qualified Code(s): S72.001A - Fracture of unspecified part of neck of right femur, initial encounter for closed fracture
[2024-11-13 07:53] LABS: Anion Gap 4.0 (3-11); Blood Urea Nitrogen 13.0 mg/dl (6-23); Calcium 8.1 mg/dl (8.6-10.3); Carbon Dioxide 33.0 mmol/L (21-32); Chloride 89.0 mmol/L (98-107); Creatinine Clr Calc Pharmacy 152.2 ml/min; Glucose 110.0 mg/dl (70-99(Fasting)); Magnesium 1.6 mg/dl (1.7-2.4); Potassium 4.3 mmol/L (3.5-5.1); Sodium 126.0 mmol/L (136-145)
[2024-11-13] MEDS: THIAMINE HCL 100 MG TAB PO SCH (08:09)
[2024-11-13] MEDS: ALUMINUM/MAGNESIUM SUSP 30 ML UDC PO PRN (08:26)
[2024-11-13] MEDS: MAGNESIUM HYDROXIDE SUSP 30 ML UDC PO PRN (08:28)
[2024-11-13] MEDS: TOLVAPTAN 15 MG TABLET PO ONE (08:56)
--- NOTE | 2024-11-13 10:03 | Nephrology Progress Note ---
Date of Service November 13, 2024 Assessment & Plan (1) Acute hyponatremia: (2) Alcohol abuse: (3) Closed right hip fracture: Plan 63-year-old female with past medical history significant for hypertension, smoking and alcohol abuse, admitted to the hospital after a fall at home and right hip fracture and found to have acute hyponatremia. Serum sodium was 117 on admission and since admission and repeated labs sodium staying around 116- 117. Urine osmolality was 220 and urine sodium was appropriately low at 35. Clinically seems euvolemic. Blood pressure slightly elevated with ongoing pain related to right hip fracture. Orthopedic surgery on hold because of hyponatremia. CT chest showed moderate pulmonary emphysema but no pulmonary nodule noted to have significant atherosclerotic disease of coronary arteries. Had right hip hemiarthroplasty on 11/11/2024. Acute hyponatremia possibly secondary to combination of factors including intractable pain, COPD, excessive alcohol. Sodium improved to 128 and again slightly dropped to 126 this morning. -- Tolvaptan 15 mg x 1 dose now, repeat sodium in early afternoon if sodium stays stable, okay to be discharged today oral salt tablet 2 g twice a day. Dose can be adjusted with her PCP with outpatient lab monitoring. If discharged this afternoon recommend checking lab tomorrow and then early next week and copy to her PCP. -- Fluid restriction to 1500 mL/day -- Encouraged increased protein intake --Discussed importance of quitting smoking and excessive alcohol to avoid repeated episodes of hyponatremia. --Keep off of thiazide diuretics in future. Will sign off, no further nephrology evaluation needed at this time. Admission and Anticipated Discharge Date Admission Date: November 09, 2024 Korin Lanier was seen and evaluated this morning. She has been recovering from right hip hemiarthroplasty 2 days ago but continues to have significant pain. Sodium dropped to 126 this morning. Blood pressure has been well-controlled. She is eager to go home. Review of Systems Review of Systems: Detailed review of system was done and pertinent positives and negatives mentioned above. Physical Exam Constitutional: WD/WN, vitals as above + ill appearing; no acute distress Eyes: + anicteric sclerae Respiratory: no respiratory distress Auscultation: + diminished lung sounds Cardiovascular: RRR, no murmur, no edema Rate/Rhythm: regular rate and regular rhythm Heart Sounds: normal S1 and normal S2 Skin: no rashes, warm and dry Neurologic: no focal motor deficits and not confused Psychiatric: Orientation: alert and oriented x 3 Affect: euthymic affect Results & Data Vital Signs (Past 12 Hours) Vital Signs Temp Pulse Pulse Resp BP Pulse Ox O2 Del Method 11/13/24 07:38 37.0 C 85 16 123/69 90 Nasal Cannula 11/13/24 07:16 84 11/13/24 07:12 74 15 95 Nasal Cannula 11/13/24 03:12 37.2 C 80 17 137/67 95 Nasal Cannula 11/12/24 22:51 37.4 C 888 H 17 144/73 H 99 Nasal Cannula 11/12/24 22:12 80 O2 Flow Rate 11/13/24 07:38 2 11/13/24 07:16 11/13/24 07:12 2 11/13/24 03:12 3 11/12/24 22:51 3 11/12/24 22:12 PG Care Time/CCT Total # of Minutes Spent Total Time Spent with Patient: Total time spent is greater than 50% in coordination of care (as documented) at patient's floor/unit and/or counseling patient: Coding Level of Care Code 61354 SUB INP/OBS CARE 2/35MIN Diagnoses Acute hyponatremia E87.1 Alcohol abuse F10.10 Closed right hip fracture S72.001A Encounter type: initial encounter (3) Closed right hip fracture Encounter type: initial encounter Qualified Code(s): S72.001A - Fracture of unspecified part of neck of right femur, initial encounter for closed fracture
[2024-11-13] MEDS: MAGNESIUM OXIDE 400 MG TAB PO SCH (10:20)
[2024-11-13] MEDS: ALBUT/IPRATROP 3MG/0.5MG NEB 3 ML VIAL NEB PRN (10:25)
--- NOTE | 2024-11-13 11:28 | Hospitalist Progress Note ---
Date of Service November 13, 2024 Assessment & Plan (1) Closed right hip fracture: Plan: From mechanical fall. Appreciate orthopedic surgery consultation and recommendations. Right hip hemiarthroplasty was completed on November 11. Postoperative day #2. This most likely was a pathologic fracture related to underlying osteoporosis (2) SIADH (syndrome of inappropriate ADH production): Plan: Sodium 117 with hypoosmolarity present on admission. Sodium improved to 128 maximum and is 126 today, November 13. Appreciate nephrology consult and recommendations. Continue oral salt tablets, fluid restriction and daily lab. She has also received 1 dose of tolvaptan this admission (3) Acute exacerbation of chronic bronchitis: Plan: Improved with Levaquin, day 4. Rhonchi have resolved. Continue incentive spirometry. Continue scheduled nebulizer treatments (4) Acute on chronic respiratory failure with hypoxia: Plan: Supplemental oxygen to maintain saturation greater than 90%. She states she has home oxygen but she does not use it. (5) Hypomagnesemia: Plan: Corrected with parenteral replacement. Serial labs (6) Essential hypertension: Plan: Systolic blood pressure elevation improved with as needed IV hydralazine. Will follow (7) Vitamin D deficiency: Plan: Contributing to underlying osteoporosis. Oral vitamin D supplementation has been started. Plan Hopeful discharge to [facility] November 14 Admission and Anticipated Discharge Date Admission Date: November 09, 2024 Subjective Alert and oriented. No acute distress. Magnesium level is still low at 1.6 and oral replacement ordered. She remains on oral Levaquin for few more days. Postoperative day #2 after right hip hemiarthroplasty for the fracture. Sodium remains low at 126. She continues with fluid restriction and oral sodium chloride tablets. She received 1 dose of tolvaptan on this admission. Appreciate nephrology consultation and recommendations. Probable discharge to [facility] November 14 Review of Systems 2 Review of Systems: Constitutionalno fever or chills ENTno blurred vision, no double vision, no epistaxis, no sore throat Respiratoryoccasionally productive cough has resolved. No hemoptysis. She states she has oxygen at home but does not use it Cardiacno palpitations, no chest pain, no syncope Lulu nausea, vomiting, diarrhea, melena, hematochezia GUno urinary retention, no urinary incontinence, no dysuria, no hematuria Musculoskeletalright hip discomfort with movement from underlying fracture. No muscle tenderness Skinno bruising, no rashes, no pruritus Neurono isolated weakness, no paresthesia, no weakness Psychno depression, no anxiety Physical Exam 2 Physical Exam: General-alert and oriented x3, no fever, no chills HEENT-head atraumatic and normocephalic, pupils equal and reactive to light, extraocular muscles intact Neck-no lymphadenopathy or thyromegaly, trachea midline Chest-midline rhonchi are no longer audible. Diminished breath sounds bilaterally. No wheezing. No dullness to percussion. Cardiac-regular rate and rhythm, normal S1 and S2 Abdomen-normal bowel sounds, no hepatosplenomegaly Extremities-right lower extremity is slightly shortened due to right hip fracture. No peripheral edema. No cyanosis. Neuro-cranial nerves II through XII intact, motor and sensory function within normal limits, strength symmetrical, no focal deficits Psych-normal affect, normal mood Results & Data Results & Data Vital Signs (Past 12 Hours) Vital Signs Temp Pulse Pulse Resp BP Pulse Ox O2 Del Method 11/13/24 10:54 36.3 C L 89 19 109/63 90 Nasal Cannula 11/13/24 10:25 85 16 94 Nasal Cannula 11/13/24 10:06 Nasal Cannula 11/13/24 07:38 37.0 C 85 16 123/69 90 Nasal Cannula 11/13/24 07:16 84 11/13/24 07:12 74 15 95 Nasal Cannula 11/13/24 03:12 37.2 C 80 17 137/67 95 Nasal Cannula O2 Flow Rate 11/13/24 10:54 1 11/13/24 10:25 2 11/13/24 10:06 2 11/13/24 07:38 2 11/13/24 07:16 11/13/24 07:12 2 11/13/24 03:12 3 Laboratory Results 11/13/24 07:14 11/13/24 07:14 PG Care Time/CCT Total # of Minutes Spent Total Time Spent with Patient: Total time spent is greater than 50% in coordination of care (as documented) at patient's floor/unit and/or counseling patient: Coding Level of Care Code 60707 SUB INP/OBS CARE 2/35MIN Diagnoses Closed right hip fracture S72.001A Encounter type: initial encounter SIADH (syndrome of inappropriate ADH production) E22.2 Acute exacerbation of chronic bronchitis J20.9; J42 Acute on chronic respiratory failure with hypoxia J96.21 Hypomagnesemia E83.42 Essential hypertension I10 Vitamin D deficiency E55.9 (1) Closed right hip fracture Encounter type: initial encounter Qualified Code(s): S72.001A - Fracture of unspecified part of neck of right femur, initial encounter for closed fracture
[2024-11-13] MEDS: POLYETHYLENE (MIRALAX) 17 GM PACK PO PRN (20:28)
[2024-11-14 04:49] LABS: Hematocrit (blood only) 32.3 % (37.0-47.0); Hemoglobin 10.4 g/dl (12.0-16.0); Immature Granulocytes # (auto) 0.03 K/uL (0.01-0.20); Immature Granulocytes % (auto) 0.4 %; Mean Corpuscular Hemoglobin 31.1 pg (25.0-34.0); Mean Corpuscular Volume 96.7 fL (80.0-100.0); Platelet Count 139 K/uL (130-400); RDW Standard Deviation 68.0 fL (36.4-46.3); Red Blood Count 3.34 M/uL (4.20-5.40); White Blood Count 7.98 K/ul (4.8-10.8)
[2024-11-14 05:07] LABS: Anion Gap 4.0 (3-11); Blood Urea Nitrogen 16.0 mg/dl (6-23); Calcium 8.1 mg/dl (8.6-10.3); Carbon Dioxide 35.0 mmol/L (21-32); Chloride 90.0 mmol/L (98-107); Creatinine Clr Calc Pharmacy 112.5 ml/min; Glucose 118.0 mg/dl (70-99(Fasting)); Potassium 4.8 mmol/L (3.5-5.1); Sodium 129.0 mmol/L (136-145)
[2024-11-14] MEDS: FERROUS SULFATE 325 MG TAB PO SCH (08:58)
[2024-11-14] MEDS: DOCUSATE SODIUM SYRUP 100 MG/10 ML UDC PO STA (10:29)
[2024-11-14] MEDS: POLYETHYLENE (MIRALAX) 17 GM PACK PO STA (10:29)
--- NOTE | 2024-11-14 10:48 | Discharge Summary ---
Discharge Summary Date of Service November 14, 2024 Principal Dx & Hospital Course #1 = Principal Diagnosis (1) Closed right hip fracture: From mechanical fall. Appreciate orthopedic surgery consultation and recommendations. Right hip hemiarthroplasty was completed on November 11. Postoperative day #3. This most likely was a pathologic fracture related to underlying osteoporosis (2) SIADH (syndrome of inappropriate ADH production): Sodium 117 with hypoosmolarity present on admission. Sodium improved to 128 maximum and is 129 today, November 14. Appreciate nephrology consult and recommendations. Continue oral salt tablets, fluid restriction and daily lab while hospitalized. She has also received 1 dose of tolvaptan this admission (3) Acute exacerbation of chronic bronchitis: Improved with Levaquin, day 5. Rhonchi have resolved. Will discontinue Levaquin today, November 14. She was also treated with incentive spirometry while hospitalized and scheduled nebulizer treatments. (4) Acute on chronic respiratory failure with hypoxia: Supplemental oxygen to maintain saturation greater than 90%. She states she has home oxygen but she does not use it. Two-step oxygen evaluation will be done prior to discharge (5) Hypomagnesemia: Corrected with parenteral replacement. Serial labs (6) Essential hypertension: Systolic blood pressure elevation improved with as needed IV hydralazine. Will follow (7) Vitamin D deficiency: Contributing to underlying osteoporosis. Oral vitamin D supplementation has been started. Plan Discharge to home with home health services todayNovember 14 Discharge Exam General-alert and oriented x3, no fever, no chills HEENT-head atraumatic and normocephalic, pupils equal and reactive to light, extraocular muscles intact Neck-no lymphadenopathy or thyromegaly, trachea midline Chest-midline rhonchi are no longer audible. Diminished breath sounds bilaterally. No wheezing. No dullness to percussion. Cardiac-regular rate and rhythm, normal S1 and S2 Abdomen-normal bowel sounds, no hepatosplenomegaly Extremities-right lower extremity is slightly shortened due to right hip fracture. No peripheral edema. No cyanosis. Neuro-cranial nerves II through XII intact, motor and sensory function within normal limits, strength symmetrical, no focal deficits Psych-normal affect, normal mood Discharge Plan Discharge Items Patient Disposition: Home - Home Health Services Reason For Visit: HYPONATREMIA, FALL Discharge Diagnosis: Mechanical fall with pathologic right hip fracture secondary to osteoporosis, SIADH, hypomagnesemia Condition on Discharge: Good Activity: Per Instructions section Activity Comment: Use a walker while ambulating. Home physical therapy has been requested Non-emergency contact: Primary Care Provider and Surgeon Call non-emergency contact if: you have any medication questions and your symptoms worsen Follow-up/Referrals: Brenda Neely PA-C [Primary Care Provider] - Diet: Regular Addtl Attending Provider Instructions: Wear oxygen at all times as instructed. Continue iron supplementation twice daily for at least 1 month. All other medications remain the same. Drink liquids only when feeling thirsty and with meals. Follow-up with orthopedic surgeon in 2 weeks. See primary care provider soon as possible. Prescriptions for vitamin D, folate, thiamine, and salt tablets have been sent to your pharmacy in [place] Pending Studies at Discharge: No Stand-Alone Forms: My [facility] lark, Smoking Cessation Medications and DC Order Prescriptions: New thiamine HCl (vitamin B1) 100 mg Tablet 100 mg PO DAILY Qty: 30 0RF ferrous sulfate 325 mg (65 mg iron) Tablet,Delayed Release (Dr/Ec) 325 mg PO BIDM Qty: 60 0RF sodium chloride 1,000 mg Tablet,Soluble 2,000 mg PO BID Qty: 90 0RF cholecalciferol (vitamin D3) 125 mcg (5,000 unit) Tablet 125 mcg PO QAM Qty: 30 0RF docusate sodium 100 mg Capsule 100 mg PO BID Qty: 0 0RF polyethylene glycol 3350 [Miralax] 17 gram Powder In Packet 17 g PO DAILY Qty: 0 0RF Continued lisinopril-hydrochlorothiazide 20-12.5 mg tablet 1 tab PO DAILY hydrocodone-acetaminophen 10-325 mg tablet 1 tab PO BID aspirin 81 mg tablet,delayed release (DR/EC) 81 mg PO DAILY venlafaxine 100 mg tablet 100 mg PO DAILY buspirone 10 mg tablet 10 mg PO BID furosemide 20 mg tablet 20 mg PO DAILY metoprolol succinate 25 mg tablet extended release 24 hr 25 mg PO HS albuterol sulfate 90 mcg/actuation HFA aerosol inhaler 2 puff INHALATION Q4H PRN (Reason: Wheezing) cyclobenzaprine 5 mg tablet 5 mg PO HS PRN (Reason: MUSCLE SPASMS) Spiriva Respimat 1.25 mcg/actuation mist 2 inh INHALATION DAILY magnesium oxide 400 mg magnesium Tablet 400 mg PO DAILY Discontinued clindamycin HCl 300 mg capsule 300 mg PO Q6H Rx Instructions: STARTED 11/03/24 FOR 7 DAYS sulfamethoxazole-trimethoprim 800-160 mg tablet 1 tab PO BID Rx Instructions: STARTED 11/03/24 FOR 7 DAYS Discharge Orders: Discharge Order (Routine); Ordered 11/14/24 Ordered By: Jayden Kevin Admission Data Admit Date/Time: 11/09/24 02:14 Attending Provider: Jayden Kevin Admit Provider: Louisa Granger Primary Care Provider: Brenda Neely Other Providers: Cecilio Boykin; Louisa Granger; Evelio Stark; Lorraine Sagastume [facility] Stay Data Consultations 11/09/24 01:37 Consult Orthopedic Surgery Routine ED Decision to Admit Stat 11/09/24 02:14 ED Decision to Admit Stat 11/09/24 09:29 Consult Nephrology Routine Procedures Performed Operation Date: 11/11/24 14:00 Actual Procedures p Right Anterior Hip Hemiarthroplasty(Right) - Evelio Stark DO Diagnostic Imagining Performed 11/09/24 15:01 CT chest diagnostic wo con Routine 11/11/24 14:00 FL hip RT 1V Routine Pending Results Patient Have Any Pending Studies at Discharge: No Discharge Instructions Given to Patient (Per Discharging Provider) Wear oxygen at all times as instructed. Continue iron supplementation twice daily for at least 1 month. All other medications remain the same. Drink liquids only when feeling thirsty and with meals. Follow-up with orthopedic surgeon in 2 weeks. See primary care provider soon as possible. Prescriptions for vitamin D, folate, thiamine, and salt tablets have been sent to your pharmacy in [place] Total Time Total Time Spent Total Time Spent (In Minutes): 50 minutes Coding Level of Care Code 46766 INP/OBS DISCH >30 MIN Diagnoses Closed right hip fracture S72.001A Encounter type: initial encounter SIADH (syndrome of inappropriate ADH production) E22.2 Acute exacerbation of chronic bronchitis J20.9; J42 Acute on chronic respiratory failure with hypoxia J96.21 Hypomagnesemia E83.42 Essential hypertension I10 Vitamin D deficiency E55.9
[2024-11-14 11:20] VITALS: BP 109/69; TEMP 97.5
[2024-11-14 11:47] VITALS: PULSE 82; RESP 16; O2SAT 92
[2024-11-14] MEDS ORDERED: DOCUSATE SODIUM 100 MG CAP PO SCH (21:00)
[2024-11-15] MEDS ORDERED: POLYETHYLENE (MIRALAX) 17 GM PACK PO SCH (09:00)
== END 2024-11-14 14:35 | disposition home health service (06) | DRG 521 ==
LOC: ED 00:29 → 2E 02:14 → SUATTDRO 02:14 → 2E 03:15